=== PATIENT | male | born 1950 | race Caucasian/White ===

== ENCOUNTER 2025-04-18 22:14 | Inpatient (IN) | payer MEDICARE, OTHER, SELFPAY ==
[2025-04-18] VITALS (7 sets, daily range): BP systolic 100–144; BP diastolic 48–122; BMI 24.3
[2025-04-18 16:05] LABS: Hematocrit 42.5 % (39.0-52.0); Hemoglobin 13.8 g/dL (13.0-18.0); Mean Corp Hgb Conc. 32.5 g/dL (33.0-37.0); Mean Corpuscular Volume 91.0 fL (80.0-94.0); Nucleated Red Blood Cells % 0 % (-); Platelet Count 528 10^3/uL (130-400); Red Cell Dist. Width 14.2 % (11.5-14.5)
[2025-04-18 16:18] LABS: ALT (SGPT) 15 U/L (0-50); AST (SGOT) 15 U/L (17-59); Albumin 4.4 g/dl (3.5-5.0); Alkaline Phosphatase 90 U/L (38-126); Blood Urea Nitrogen 56 mg/dl (9-20); Calcium 10.0 mg/dl (8.4-10.2); Carbon Dioxide 20 mmol/L (22-30); Chloride 104 mmol/L (98-107); Glucose 238 mg/dl (70-99); Lipase 169 U/L (23-300); Potassium 4.7 mmol/L (3.5-5.1); Sodium 137 mmol/L (135-145); Total Protein 7.7 g/dl (6.3-8.2); eGFR 57.29
[2025-04-18 19:24] LABS: Troponin I 0.017 ng/ml
[2025-04-18] MEDS: DILAUDID 0.25 MG IV (19:54)
[2025-04-18] MEDS: NSS 1000 IV (19:57)
[2025-04-18 20:14] LABS: Urine Character Clear (Clear)
[2025-04-18 20:22] LABS: Urine Red Blood Cell 0-2 /HPF (0-2); Urine Squamous Cell 0-2 /LPF (Few); Urine White Cell 30-40 /HPF (0-5)
[2025-04-18 20:41] LABS: Troponin I 0.022 ng/ml
--- NOTE | 2025-04-18 21:18 | HPS.HSE ---
Family Physician
-
Family Physician: Donavan Fine
Chief Complaint
-
LBP, dehydration
History of Present Illness
HPI�
75M vague historian seen at ED:
- evalaution for Lower back pain with radiatios to thighs
- hip pain x 6 days
- nausea, diarrhea, fatigue, dehydration, confusion
- - Lightheaded and SoB
- failrly immobile since yesterday
Medical History
Past Medical History
Past Medical History: Reports HTN, Hypercholesterolemia, NIDDM and Psychiatric (depression)
Past Surgical History: Reports Other
Social History
Tobacco: Non-smoker
Alcohol: None
Family History
Family History: Not pertinent
Allergies / Home Medications
Allergies reflects when Allergies were last updated in 5to1.
Home Medications with original date entered in 5to1
Allergy/Medication List:
Allergies
Allergy/AdvReac Type Severity Reaction Status Date / Time
No Known Allergies Allergy Verified 04/18/25 15:39
Home Medications
aspirin 81 mg tablet,delayed release 81 mg PO DAILY 04/18/25
escitalopram oxalate 10 mg tablet (Lexapro) 10 mg PO DAILY 04/18/25
lisinopril 20 mg-hydrochlorothiazide 12.5 mg tablet 1 tab PO BID 04/18/25
metformin 500 mg tablet,extended release 24 hr 2,000 mg PO QPM 04/18/25
methylprednisolone 4 mg tablets in a dose pack (Medrol ([place])) 0 mg PO PER PKG DIR 04/18/25
naproxen sodium 220 mg tablet (Aleve) 440 mg PO BID 04/18/25
omega 7-wxz-vko-fish oil 60 mg-90 mg-500 mg capsule (Fish Oil) 1 cap PO DAILY 04/18/25
simvastatin 40 mg tablet (Zocor) 40 mg PO DAILY 04/18/25
therapeutic multivitamin 1 tab PO DAILY 04/18/25
Review of Systems
-
Constitutional: Reports No Symptoms
EENT: Reports No Symptoms
Respiratory: Reports No Symptoms
Cardiac: Reports No Symptoms
: Reports No Symptoms
Skin: Reports No Symptoms
Neurological: Reports No Symptoms
Endocrine: Reports No Symptoms
Hematologic/Lymphatic: Reports No Symptoms
Psych: Reports No Symptoms
Physical Exam
Vital Signs
Vital Signs
Temp Pulse Resp BP Pulse Ox
98.8 F 68 20 112/56 98
04/18/25 15:39 04/18/25 19:45 04/18/25 19:45 04/18/25 19:10 04/18/25 18:48
Physical Exam
General: Well Developed, Well Nourished and No Apparent Distress
HEENT: NormoCephalic, Moist mucous membranes and Atraumatic
Respiratory: Clear
Cardiac: S1/S2 and Regular Rhythm; No Murmur or Rub
GI: Soft, Non Tender, Non Distended and Normal Bowel Sounds; No Organomegaly
Rectal: Deferred by Provider
Musculoskeletal: No Clubbing, No Cyanosis and No Edema
Skin: No Rash
Neuro: Nonfocal/grossly intact and No Sensory Deficits (in [place] )
Laboratory Results
-
04/18/25 15:51
04/18/25 15:51
Laboratory Results
Lactic Acid 2.6 mmol/L (0.7-2.0) H 04/18/25 19:54
Total Bilirubin 0.9 mg/dl (0.2-1.3) 04/18/25 15:51
AST 15 U/L (17-59) L 04/18/25 15:51
ALT 15 U/L (0-50) 04/18/25 15:51
Alkaline Phosphatase 90 U/L (38-126) 04/18/25 15:51
Troponin I 0.022 ng/ml D 04/18/25 19:54
Lipase 169 U/L (23-300) 04/18/25 15:51
Data Reviewed
-
CT Scan: Report Reviewed by me
Lab Data: Labs Reviewed by me
Impression/Plan
-
Vital Signs
Temp Pulse Resp BP Pulse Ox
98.8 F 68 20 112/56 98
04/18/25 15:39 04/18/25 19:45 04/18/25 19:45 04/18/25 19:10 04/18/25 18:48
04/18/25 04/18/25 04/18/25
15:51 19:54 20:00
WBC 21.8 H
Hgb 13.8
Plt Count 528 H
BUN 56 H
Creatinine 1.3
eGFR 57.29
Lactic Acid 2.6 H
Creatine Kinase 24 L
Troponin I 0.017 0.022 D
Urine Nitrite (Reflex) Positive A
Urine WBC (Reflex) 30-40 A
Urine Bacteria (Reflex) Many A
EKG
NORMAL SINUS RHYTHM
LEFT AXIS DEVIATION
INCOMPLETE LEFT BUNDLE BLOCK
MINIMAL VOLTAGE CRITERIA FOR LVH, MAY BE NORMAL VARIANT ( Kai product )
INFERIOR INFARCT , AGE UNDETERMINED
ANTERIOR INFARCT , AGE UNDETERMINED
ST and T WAVE ABNORMALITY, CONSIDER LATERAL ISCHEMIA
ABNORMAL ECG
NO PREVIOUS ECGS AVAILABLE
Confirmed by MAURICIO TREVINO MD (ELLIE) ([id number]) on 04/18/2025 5:21:[address] Abd/Pel (IV only)-DH only
- Scattered small hepatic simple cysts as well as additional subcentimeter low-attenuation hepatic lesions too small to characterize.
- Borderline diffuse fatty liver.
- Symmetric renal excretion.
NO PRIOR hospitalist admission:
ASSESSMENT & PLAN
UTI
- IVF
- Empiric IV CFTZ
Renal insufficiency of unknown chronicity
- Avoid
Chronic loose BM
Noted blood stained per daughter and son- Hemorrhoids ?
report black stools
Hgb 13.8 and hemodynamically stable
- HoB stool
- trend Hgb
LBP with radiation to thighs ? B/L Lumbago
acute ambulatory dysfunction
- cont Medrol dose pack
- PT/OT
- PRN Pain ladder control according to severity : Tyelnol PRN , Percocet PRN, IV Dilaudid PRN - hold for AMS
- To consider MRI of Lx spine if no progress
Essential HTN
- SPECTRAL SCIENTIST Lisinopril/HCTZ
DMT2
- Hold Metformin
- add ISS low
HLD
- on SPECTRAL SCIENTIST ASA & Simvastatin
Depression
- escitalopram
DVT Px: SCD
Full code
IP MS
[2025-04-18] MEDS: ROCEPHIN 2000 MG IV (21:25)
[2025-04-18] MEDS: DILAUDID 0.5 MG IV (21:26)
[2025-04-18 22:24] LABS: COVID-19 Antigen Negative (Negative)
--- NOTE | 2025-04-18 23:01 | ED.GENMED ---
History of Present Illness
General
Chief Complaint: Musculo-Skeletal Complaint
Source: patient and family
Exam Limitations: clinical condition
Time Seen by Provider: 04/18/25 19:03
Nursing documentation reviewed up to this point in time: agreed with
History of Present Illness
History of Present Illness:
see MDM
Phy Exam
Physical Exam
Physical Exam:
GENERAL: Alert , in no apparent distress
EYE: pupils equal and reactive
NECK: Supple
ENT: o/p clr, mmm. hoarse voice, dry mouth and lips
CARDIAC: Regular rate and rhythm .
LUNGS: Clear breath sounds bilaterally, no acute respiratory distress, no wheezes/rales/rhonchi
ABDOMEN: Soft, mild to mod R flank tendrerness; no r/g, no cvat, normal bowel sounds
NEUROLOGICAL: Alert and oriented, no focal neuro deficits
SKIN: Warm and dry, skin intact.
MUSCULOSKELETAL: normal inspection back and R hip
mild R paraspinal muscle tendenrss
no rash
no bony hiip tenderness
painful limited hip rom, but able to flex hip 30 degrees and rotate, do not suspect septic joint
normal leg perfusion
no testicular swelling
PSYCH: Normal and appropriate interaction.
Course
Orders/Labs/Results
Orders:
Orders
04/18/25 15:44
Electrocardiogram (*1) Urgent
Reason for Study: Abdominal Pain
EKG- Treatment ONCE
04/18/25 15:51
Complete Blood Count/With Diff Urgent
Comprehensive Metabolic Panel Urgent
Lipase Urgent
Troponin I Urgent
Comment: ADD ON ON SERUM
04/18/25 19:00
Add On- LAB Urgent
Tests Added?: troponin
04/18/25 19:27
CT Abd/Pel (IV only)-[facility] only Urgent
Comment:
Reason For Exam: R back/groin pain, diarrhea, weak
0.9% Sodium Chloride 1000 ml [Nss] 1,000 ml IV BOLUS
HYDROmorphone [Dilaudid] 0.25 mg IV NOW STA
04/18/25 19:54
CPK [Creatine Phosphokinase] Urgent
Lactic Acid Urgent
Troponin I Urgent
04/18/25 20:00
Urinalysis Reflex To Culture Urgent
Date Specimen was Collected: 04/18/25
Time Specimen was Collected: 20:00
Urine Microscopic Reflex Cult Urgent
Urine Culture Urgent
NERY Source: U
Specimen Description:
Date Specimen was Collected: 04/18/25
Time Specimen was Collected: 20:00
04/18/25 20:50
CefTRIAXone [Rocephin] 2,000 mg IV NOW STA
04/18/25 21:05
HYDROmorphone [Dilaudid] 0.5 mg IV NOW STA
Hip, Right 2-3 Views [CR Hip - RT w/wo Pel 2-3 Vw*] Urgent
Comment:
Reason For Exam: R hip pain
Include a pelvis x-ray?: Yes
04/18/25 21:08
Sterile Water [Sterile Water For Injection] 10 ml .ROUTE .STK-MED ONE
04/18/25 21:09
Sterile Water [Sterile Water For Injection] 20 ml .ROUTE .STK-MED
04/18/25 21:36
Admit/Transfer Patient As Directed
Co-Sign Provider:
Level of Care: Inpatient admission
Assign to:: Medical/Surgical
Physician / Group: [email or web address]
Transfer to: Medical/Surgical
Diagnosis: UTI, LBP, Renal insufficiency
Reason for Hospitalization: UTI, LBP, Renal insufficiency
Expected length of stay greater than two midnights?: Yes
ELOS- Estimated Length of Stay in days: 3
I certify the patient meets the requirements for IP care: Yes
04/18/25 21:39
Code Status As Directed
Resuscitation Status: Full Code
04/18/25 21:59
COVID-19 Antigen Urgent
Source: Nasal Swab
Blood Culture Q30M
NERY Source: Blood/Venous
Specimen Description:
Blood Culture Q30M
NERY Source: Blood/Venous
Specimen Description:
Abnormal Lab Results
04/18/25 04/18/25 04/18/25
15:51 19:54 20:00
WBC 21.8 H 10^3/uL
(4.8-10.8)
RBC 4.67 L 10^6/uL
(4.70-6.10)
MCHC 32.5 L g/dL
(33.0-37.0)
Plt Count 528 H 10^3/uL
(130-400)
Abs Immat Gran (auto) 0.4 H 10^3/uL
(0-0.05)
Absolute Neuts (auto) 16.6 H 10^3/uL
(1.4-6.5)
Absolute Monos (auto) 1.7 H 10^3/uL
(0.1-0.6)
Immature Gran % 1.6 H %
(0-0.5)
Neutrophils % 76.1 H %
(42.2-75.2)
Lymphocytes % 13.9 L %
(20.5-51.1)
Carbon Dioxide 20 L mmol/L
(22-30)
BUN 56 H mg/dl
(9-20)
Glucose 238 H mg/dl
(70-99)
Lactic Acid 2.6 H mmol/L
(0.7-2.0)
AST 15 L U/L
(17-59)
Creatine Kinase 24 L U/L
(55-170)
Urine Nitrite (Reflex) Positive A
(Negative)
Leukocyte Esterase Rfl 1+ A
(Negative)
Urine WBC (Reflex) 30-40 A /HPF
(0-5)
Urine Bacteria (Reflex) Many A
(Negative)
Urine Glucose 4+ A
(Negative)
Urine Albumin (Reflex) 1+ A
(Neg - Trace)
04/18/25 15:51
04/18/25 15:51
Vital Signs
Initial and Last Documented VS:
Initial Vital Signs
Temp Pulse Resp BP Pulse Ox
37.1 C 84 18 114/48 96
04/18/25 15:39 04/18/25 15:39 04/18/25 15:39 04/18/25 15:39 04/18/25 15:39
Last Documented Vital Signs
Temp Pulse Resp BP Pulse Ox
37.1 C 60 15 144/122 98
04/18/25 15:39 04/18/25 22:15 04/18/25 22:15 04/18/25 21:00 04/18/25 23:01
MDM/Problems Addressed
MDM/Problems Addressed:
Note:
CHIEF COMPLAINT(S)
Right hip pain and bowel incontinence.
HISTORY OF PRESENT ILLNESS
Patient says he presents for right hip pain, worse with movement and walking without initiating trauma over the last 6 days. Patient says that he got a right knee Kwan's cyst drained and a cortisone shot from orthopedics. And after that a day or
2 later he started having right-sided back pain. Is not totally unusual for him to have back pain but this is much more significant. He started feeling nauseated, had some diarrhea to where he could not get to the bathroom in time because his hip
was painful so he became incontinent. This is unusual for him although the family says he has had issues with his bowels before this seems worse. Then over the last 3 or 4 days he seemed to be little confused according to the family. He says that
he has not really gotten out of bed and was pretty dehydrated not eating for the past 2 days because the pain was bad.. The patient describes experiencing balance issues, feeling lightheaded before a previous fall, but does not attribute this to leg
weakness, rather to stability problems. The patient has a prior history of falls, noted as lacking in frequency but significant in impact. Despite saying that he felt short of breath in triage she denied feeling short of breath to me
He denies any fever, cold symptoms, shortness of breath, chest pain, vomiting, dysuria
MEDICAL HISTORY
The patient has a history of diabetes. He also reported having previous corticosteroid treatment and is currently on a prednisone taper but did not take it today. The patient takes aspirin regularly.
SOCIAL DETERMINANTS AFFECTING HEALTH
The patient reports rarely consuming alcohol.
MEDICATIONS
- Prednisone (patient did not take todays dose)
- Aspirin (dose not specified)
REVIEW OF SYSTEMS
- Gastrointestinal: Reports bowel incontinence, lack of food intake.
- Musculoskeletal: Right hip pain, difficulty walking, and reduced mobility.
- Respiratory: Mild difficulty breathing, hoarseness noted since Friday.
- General: Dehydration, weakness, light-headedness before prior fall.
PHYSICAL EXAM
See above
- Nursing notes reviewed and vital signs reviewed.
PLAN
The plan includes performing a computed tomography scan to investigate potential internal causes related to abdominal, hip, and back pain. A COVID-19 test is warranted due to the respiratory symptoms and general malaise, alongside the provision of
intravenous fluids for dehydration. Consideration for imaging of the patients hip, back, and abdominal areas is outlined. Control and management of pain will be addressed with additional pain relief.
DIFFERENTIAL DIAGNOSIS
The Differential Diagnosis includes, in no particular order and is not limited to:
1. Sciatica
2. Hip joint inflammation
3. Bowel obstruction or infection
4. Urinary tract infection
5. Lumbar disc disease
6. Sciatic nerve impingement
7. Viral infection leading to joint involvement
8. Dehydration secondary to reduced intake
9. New onset diabetes-related complications
10. Musculoskeletal sprain or strain
CARE-UPDATE
04/18/25 - 21:05
Patient presented with atraumatic right hip and back pain, no signs of cauda equina, some discomfort with ranging the hip passively and right CVA and right flank tenderness on exam. Patient's white blood cell count is moderately elevated 21,000
with a left shift, likely too high to attribute to steroid use. His BUN is also significantly elevated, and the patient P appear dehydrated. He is receiving IV fluids and he does look a little bit perkier patient's lactate is elevated
And his urine is infected.
The CT scan showed no evidence of diverticulitis or colitis, nor did it clarify the source of the patients pain, suggesting it may not be related to gastrointestinal causes. The patient may simultaneously be experiencing musculoskeletal pain due to
sciatica or immobility, alongside the infection. Prostatitis was considered but deemed less likely, given the patients recent satisfactory PSA levels and absence of significant rectal pressure.
Immediate hospital admission for IV antibiotics is necessary to address the bladder/kidney infection and prevent progression to sepsis.
*Pulse Oximetry
SaO2: 98
Oxygen Mode of Delivery: Room air
Patient hypoxic: no (96)
*Critical Care Note
Total Time (30-74mins, 75-104mins- exclusive of procedures): Not Applicable
ED Attending Note
-
Portions of this chart may have been created with voice recognition software.� Occasional wrong word or��sound alike� substitutions may have occurred due to the inherent limitations of voice recognition software.
Discharge Plan
Departure
Patient Disposition: Admit
Date of Disposition: 04/18/25
Time of Disposition: 20:50
Admit to: Med/Surg
Presentation/result/management discussed w/ accepting MD/DO: Hospitalist
Condition: Fair
Covid-19: Not Applicable
Discharge Problem:
Pyelonephritis, Hip pain, right, Dehydration
Interventions
Interventions:
*Risk Screen - Suicide Last Done: 04/18/25 15:39
*General Assessment Last Done: 04/18/25 19:42
*Neglect/Abuse Screening Last Done: 04/18/25 19:42
*ED- Fall Risk Assessment Last Done: 04/18/25 19:42
*ED COVID-19 Vaccine History Last Done: 04/18/25 19:42
ED-Musculoskeletal Assessment Last Done: 04/18/25 19:44
[2025-04-19] MEDS: DILAUDID 0.5 MG IV ×2 (01:24→17:06)
[2025-04-19] MEDS: NSS 1000 IV ×2 (01:25→13:48)
[2025-04-19 01:36] VITALS: BP 161/66; BMI 24.2
[2025-04-19 02:03] LABS: Glucose - Point of Care 310 mg/dl (70-99)
[2025-04-19 05:56] VITALS: BMI 24.5
[2025-04-19 06:05] LABS: ALT (SGPT) 13 U/L (0-50); AST (SGOT) 12 U/L (17-59); Albumin 3.5 g/dl (3.5-5.0); Alkaline Phosphatase 73 U/L (38-126); Blood Urea Nitrogen 58 mg/dl (9-20); Calcium 8.9 mg/dl (8.4-10.2); Carbon Dioxide 23 mmol/L (22-30); Chloride 103 mmol/L (98-107); Estimated Creatinine Clearance 54 ml/min; Glucose 271 mg/dl (70-99); Potassium 4.2 mmol/L (3.5-5.1); Sodium 136 mmol/L (135-145); Total Protein 6.3 g/dl (6.3-8.2); eGFR 57.29
[2025-04-19 06:27] LABS: Hematocrit 35.7 % (39.0-52.0); Hemoglobin 11.8 g/dL (13.0-18.0); Mean Corp Hgb Conc. 33.1 g/dL (33.0-37.0); Mean Corpuscular Volume 91.5 fL (80.0-94.0); Platelet Count 372 10^3/uL (130-400); Red Cell Dist. Width 14.3 % (11.5-14.5)
--- NOTE | 2025-04-19 06:34 | PTCARENOTE ---
Patient arrived on unit @0035 via stretcher from ED, ambulate with assist x1 with RW to bed. Patient AAOx3, c/o 9/10 pain to right hip, prn dilaudid administered as ordered. Skin assessment completed, oriented to unit, call lynn within reach.
[2025-04-19 07:34] VITALS: BP 144/60
--- NOTE | 2025-04-19 07:41 | W.PN.HOSP.TC ---
Today's Communication/Plan
-
PT/OT consult, pending MRI
Assessment / Plan
Assessment / Plan
Impression:
Patient 75 years old with history of diabetes, hypertension, hyperlipidemia, depression who came to the ER with back pain and right hip pain, also abdominal pain, CT abdomen was done in the Er shows:
Scattered small hepatic simple cysts as well as additional subcentimeter low-attenuation hepatic lesions too small to characterize. Borderline diffuse fatty liver. Symmetric renal excretion. Limited evaluation of intestinal tract without oral
contrast, without intestinal obstruction or free air. Prior appendectomy, patient also noted to have UTI and started on Rocephin.
MRI lumbar spine ordered.
Assessment/plan:
Sepsis secondary to UTI.
Patient meets sepsis criteria on admission with leukocytosis and tachypnea.
Source of infection UTI.
Continue Rocephin
Pending urine
Mild renal sufficiency.
Continue to monitor creatinine.
Avoid nephrotoxic
Diarrhea alternate with constipation
Associated with abdominal pain
Back pain with right hip pain.
Continue Medrol pack.
MRI lumbar spine
History�of�diabetes�mellitus
Continue�home�medication
Insulin�sliding�scale
Diabetic�diet
Hemoglobin A1c 7.9
History�of�hypertension
Continue home meds
History of hyperlipidemia
Continue�statin
History of depression
Continue Lexapro
�
CODE STATUS:�Full�code
DVT�prophylaxis:�Lovenox
Diet:�DM�diet
Disposition: PT/OT consult, pending MRI
Total time spent on today's encounter was 65 minutes which included time spent in counseling the patient/family regarding diagnosis and treatment plan as listed above, goals of care, and symptom management. Case was discussed with nursing staff,
specialists, and care coordinators/case management. All labs and imaging personally reviewed by me. Remainder the time spent in detailed review of previous records, lab data, imaging, and other medical provider documentation.
Anticipated Discharge: 24 - 48 hours
Subjective/Interval History
-
Date of Service: April 19, 2025
Patient complaining of back pain or right hip pain, MRI pending.
Objective Data
-
Labs:
Laboratory Results
04/19/25
05:15
WBC 20.0 H
Hgb 11.8 L
Hct 35.7 L
Plt Count 372 D
Sodium 136
Potassium 4.2
Chloride 103
Carbon Dioxide 23
BUN 58 H
Creatinine 1.3
Glucose 271 H
Calcium 8.9
Total Bilirubin 0.5
AST 12 L
ALT 13
Alkaline Phosphatase 73
Vital Signs:
Vital Signs
Temp Pulse Resp BP Pulse Ox
98.6 F 59 16 144/60 98
04/19/25 07:34 04/19/25 07:34 04/19/25 07:34 04/19/25 07:34 04/19/25 07:34
I&O
04/18/25 04/19/25 04/20/25
06:59 06:59 06:59
Intake Total 240 / 240 434 / 434
Output Total 140 / 140
Balance 100 / 100 434 / 434
Physical Exam
-
General: Well Developed
HEENT: Normocephalic, Atraumatic, Moist Mucous Membranes, No Ptosis, PERRLA and Nose Appears Normal
Respiratory: Clear to Auscultation and Non Labored Respirations
Cardiac: Regular Rhythm and S1/S2
Breast: Deferred by me
GI: Soft, Nontender, Nondistended and Normal Bowel Sounds
Genito-urinary: No Costovertebral Tender
Musculoskeletal: No Clubbing, No Cyanosis and No Edema
Skin: Warm
Neuro: Awake, Alert, Oriented, AO x 3 and No Motor Deficits
Psych: Calm and Confused
Data Reviewed
-
Diagnostic Radiology: Image personally visualized and interpreted and Report Reviewed by me
CT Scan: Image personally visualized and interpreted and Report Reviewed by me
Ultrasound: Image personally visualized and interpreted and Report Reviewed by me
MRI: Image personally visualized and interpreted and Report Reviewed by me
Medical Tests (Nuc Med, Echo etc): Image personally visualized and interpreted and Report Reviewed by me
Labs: Labs Reviewed by me
Old Records: Reviewed
[2025-04-19] MEDS: LIPITOR 20 MG PO (07:43)
[2025-04-19] MEDS: LEXAPRO 10 MG PO (07:43)
[2025-04-19] MEDS: ASPIR LOW (ENTERIC COATED) 81 MG PO (07:43)
[2025-04-19] MEDS: ZESTRIL 20 MG PO ×2 (07:43→20:14)
[2025-04-19] MEDS: NOVOLOG FLEXPEN-LOW RESISTANCE 3 UNITS SC ×2 (07:44→17:07)
[2025-04-19 07:45] LABS: Glucose - Point of Care 271 mg/dl (70-99)
[2025-04-19 09:00] LABS: Glycohemoglobin (HgbA1c) 7.9 % (4.0-5.6)
[2025-04-19 09:36] VITALS: BP 153/64; PULSE 60
[2025-04-19] MEDS: PERCOCET 5/325 1 TABLET PO ×2 (09:36→14:24)
--- NOTE | 2025-04-19 10:31 | CM ---
Patient seen at bedside
evalaution for Lower back pain with radiatios to thighs
MRI ordered
IA completed-spoke with daughter Snow
daughter & sons live close to patient and are supportive
Recently moved to [place], lives alone 1 story home, 0 ALYSA
PLOF: Independent, does not use assistive device
denies DME
Denies VN/has had outpatient PT/OT last year for shoulder
PT to eval
PCP: Jhonathan Fine
PHARMACY: [facility]
PLAN: TBD, await PT eval, CM to follow for needs
[2025-04-19 11:37] LABS: Glucose - Point of Care 234 mg/dl (70-99)
[2025-04-19 11:53] VITALS: BMI 24.5
[2025-04-19] MEDS: NOVOLOG FLEXPEN-LOW RESISTANCE 2 UNITS SC (13:30)
[2025-04-19 15:25] VITALS: BP 121/51
[2025-04-19 17:02] LABS: Glucose - Point of Care 281 mg/dl (70-99)
--- NOTE | 2025-04-19 18:32 | W.PN.UPDATE ---
Update Note
Progress Note Update
75 yo M with left hallux cellulitis, possible OM
- continue abx
- will obtain mri to eval for L hallux OM
- no current plan for OR
[2025-04-19] MEDS: STERILE WATER FOR INJECTION 10 ML IV (21:13)
[2025-04-19] MEDS: ROCEPHIN 1000 MG IV (21:13)
[2025-04-19 21:23] LABS: Glucose - Point of Care 211 mg/dl (70-99)
[2025-04-19 23:03] VITALS: BP 130/57
[2025-04-20] MEDS: NSS 1000 IV (03:19)
[2025-04-20] MEDS: PERCOCET 5/325 1 TABLET PO (03:24)
--- NOTE | 2025-04-20 05:12 | DOWNTIME ---
There was a [employer]ist Downtime on 04/20/2025 from 0100 to 04/20/2025 at 0235. Downtime documentation of patient's care, including medication administrations, has been reconciled in the electronic record per guidelines. Refer to the
patient's paper chart under the miscellaneous tab to see printed paper medication records and downtime forms.
[2025-04-20 06:00] VITALS: BMI 24.6
[2025-04-20 06:15] LABS: Hematocrit 34.0 % (39.0-52.0); Hemoglobin 11.0 g/dL (13.0-18.0); Mean Corp Hgb Conc. 32.4 g/dL (33.0-37.0); Mean Corpuscular Volume 92.1 fL (80.0-94.0); Platelet Count 327 10^3/uL (130-400); Red Cell Dist. Width 14.3 % (11.5-14.5)
[2025-04-20 06:45] LABS: Blood Urea Nitrogen 34 mg/dl (9-20); Calcium 8.4 mg/dl (8.4-10.2); Carbon Dioxide 22 mmol/L (22-30); Chloride 108 mmol/L (98-107); Estimated Creatinine Clearance 70 ml/min; Glucose 237 mg/dl (70-99); Potassium 4.3 mmol/L (3.5-5.1); Sodium 137 mmol/L (135-145); eGFR > 60.00
[2025-04-20 07:00] VITALS: BP 127/61
[2025-04-20] MEDS: ASPIR LOW (ENTERIC COATED) 81 MG PO (07:41)
[2025-04-20] MEDS: LEXAPRO 10 MG PO (07:41)
[2025-04-20] MEDS: ZESTRIL 20 MG PO ×2 (07:41→20:28)
[2025-04-20] MEDS: LIPITOR 20 MG PO (07:41)
[2025-04-20 07:53] LABS: Glucose - Point of Care 232 mg/dl (70-99)
[2025-04-20] MEDS: NOVOLOG FLEXPEN-LOW RESISTANCE 2 UNITS SC ×2 (09:19→12:57)
--- NOTE | 2025-04-20 11:00 | W.PN.HOSP.TC ---
Today's Communication/Plan
-
Continue to Antibiotic.
Infectious disease Cx
MRI left big toe and lumbar spine pending
Assessment / Plan
Assessment / Plan
Impression:
Patient 75 years old with history of diabetes, hypertension, hyperlipidemia, depression who came to the ER with back pain and right hip pain, also abdominal pain, CT abdomen was done in the Er shows:
Scattered small hepatic simple cysts as well as additional subcentimeter low-attenuation hepatic lesions too small to characterize. Borderline diffuse fatty liver. Symmetric renal excretion. Limited evaluation of intestinal tract without oral
contrast, without intestinal obstruction or free air. Prior appendectomy, patient also noted to have UTI and started on Rocephin.
MRI lumbar spine ordered.
Noted to have left big toe infection, podiatry and infectious is consulted
Assessment/plan:
Sepsis secondary to UTI/left big toe osteomyelitis
Patient meets sepsis criteria on admission with leukocytosis and tachypnea.
Source of infection UTI/osteomyelitis.
Continue Rocephin-infectious is consulted
Pending urine
Acute left distal phalanx osteomyelitis.
Patient with infected, enlarged, red and swollen left big toe
Podiatry consulted.
X-ray shows:
Lucency suggesting cortical bony destructive process involving at least the distal aspect of the distal phalanx of the left great toe,a suspicious for infection/osteomyelitis.
Infectious is consult.
Will switch antibiotic to broad coverage
Mild renal sufficiency.
Resolved
Diarrhea alternate with constipation
Associated with abdominal pain
Back pain with right hip pain.
Continue Medrol pack.
MRI lumbar spine pending
History�of�diabetes�mellitus
Continue�home�medication
Insulin�sliding�scale
Diabetic�diet
Hemoglobin A1c 7.9
History�of�hypertension
Continue home meds
History of hyperlipidemia
Continue�statin
History of depression
Continue Lexapro
�
CODE STATUS:�Full�code
DVT�prophylaxis:�Lovenox
Diet:�DM�diet
Disposition: Continue to Antibiotic.
Infectious disease Cx
MRI left big toe and lumbar spine pending
Total time spent on today's encounter was 65 minutes which included time spent in counseling the patient/family regarding diagnosis and treatment plan as listed above, goals of care, and symptom management. Case was discussed with nursing staff,
specialists, and care coordinators/case management. All labs and imaging personally reviewed by me. Remainder the time spent in detailed review of previous records, lab data, imaging, and other medical provider documentation.
Anticipated Discharge: > 48 hours
Subjective/Interval History
-
Date of Service: April 20, 2025
Seen and examined at bedside, overall improving
Objective Data
-
Labs:
Laboratory Results
04/20/25
05:47
WBC 21.6 H
Hgb 11.0 L
Hct 34.0 L
Plt Count 327
Sodium 137
Potassium 4.3
Chloride 108 H
Carbon Dioxide 22
BUN 34 H
Creatinine 1.0
Glucose 237 H
Calcium 8.4
Vital Signs:
Vital Signs
Temp Pulse Resp BP Pulse Ox
98.3 F 61 18 127/61 96
04/20/25 07:00 04/20/25 07:00 04/20/25 07:00 04/20/25 07:00 04/20/25 07:45
I&O
04/19/25 04/20/25 04/21/25
06:59 06:59 06:59
Intake Total 240 / 240 854 / 854
Output Total 140 / 140 1650 / 1650
Balance 100 / 100 -796 / -796
Physical Exam
-
General: Well Developed
HEENT: Normocephalic, Atraumatic, Moist Mucous Membranes, No Ptosis, PERRLA and Nose Appears Normal
Respiratory: Clear to Auscultation and Non Labored Respirations
Cardiac: Regular Rhythm and S1/S2
Breast: Deferred by me
GI: Soft, Nontender, Nondistended and Normal Bowel Sounds
Genito-urinary: No Costovertebral Tender
Musculoskeletal: No Clubbing and Other (Redness, swelling left big toe)
Skin: Warm
Neuro: Awake, Alert, Oriented, AO x 3 and No Motor Deficits
Psych: Calm and Confused
--- NOTE | 2025-04-20 11:50 | CM ---
Patient seen at bedside
Continue Antibiotic
MRI left big toe and lumbar spine pending
Await PT eval
PLAN: tbd, await PT eval, CM will follow for needs
--- NOTE | 2025-04-20 12:04 | CON.ID ---
Consultation
-
Date/Time Consultation Requested: April 20, 2025 0811
Date/Time Consultation Performed: April 20, 2025 1205
Requesting Provider: Dr. Salazar Swan
Performing Provider: Dr. Jodee Tam
Reason for Consultation: Toe infection
Chief Complaint / Past History
Chief Complaint
Right-sided back pain
History of Present Illness
History obtained from the patient as well as from his daughter at bedside. He is a 75-year-old male with diabetes mellitus, neuropathy, who presented to the ER late April 18 due to severe right sided back pain. Patient had been having issues with
right knee discomfort due to Bakers cyst requiring drainage of the cyst twice. 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 He was placed on steroid without improvement. Pain is
constant. No urine symptoms of dysuria, urgency, or frequency. Had 1 episode of diarrhea at home now resolved. No fevers. No cough or shortness of breath. No headaches. No recent falls. Daughter is concerned about patient may have dementia;
he has progressive decline in cognitive function. In the ER afebrile, white count 21.8. Urine analysis positive nitrite, positive leukocyte esterase, 30-40 white blood cells, urine culture staphylococcus aureus. Blood cultures x 2 negative to
date. Patient noted to have significant swelling of the left great toe with erythema. Patient unsure when the toe started swelling up. He denies history of gout. No pain due to neuropathy. Foot x-ray shows lucency concerning for osteomyelitis.
Past History
Additional Past Medical History:
Diabetes mellitus
Neuropathy
Hypertension
Dyslipidemia
Depression
Allergy History:
No Known Allergies Allergy (Verified 04/18/25 15:39)
Medications Reviewed: Yes
Current Antibiotics:
ceftriaxone d2
Social History
Tobacco: Non-Smoker
Alcohol: None
Drug: None
Personal:
Living: With Family
Family History
Family History: Not Pertinent
Review of Systems
Review of Systems
General: Chills; Negative Fever or Change in Appetite
HEENT: Negative Headache or Pharyngitis
Cardiovascular: Negative Chest Pain or Dyspnea
Respiratory: Negative Dyspnea or Cough
Gasteroenterology: Negative Nausea or Vomiting
Genital / Urological: Negative Dysuria, Hematuria or Flank Pain
Endocrine: Weakness
Skin / Hair / Nails: Negative Rash
All systems: All other systems were reviewed and were negative
Vital Signs
Temp Pulse Resp BP Pulse Ox
98.3 F 61 18 127/61 96
04/20/25 07:00 04/20/25 07:00 04/20/25 07:00 04/20/25 07:00 04/20/25 07:45
Physical Exam
Physical Exam
Constitutional: No Acute Distress and Comfortable
Head: Other (No frontal or max or sinus tenderness)
Eyes: No Conjunctival Hemorrhage and Sclera Anicteric
Cardiovascular: Regular Rate and S1/S2
Pulmonary: Clear
Gastrointestinal: Soft, Non Tender, Non Distended and Normal Bowel Sounds
Genito-Urinary: Negative CVA Tenderness
Extremities: Edema (Left great toe with significant edema, erythema, no open wounds.) and Pulses (Strong pedal pulses bilaterally)
Musculoskeletal: Spinal Tenderness (Right lower lumbar paraspinal)
Neurological: AO x 3
Lab / Diagnostic Study Results
04/20/25 05:47
04/20/25 05:47
Abs Immat Gran (auto) 0.4 10^3/uL (0-0.05) H 04/18/25 15:51
Absolute Neuts (auto) 16.6 10^3/uL (1.4-6.5) H 04/18/25 15:51
Absolute Lymphs (auto) 3.0 10^3/uL (1.2-3.4) 04/18/25 15:51
Absolute Monos (auto) 1.7 10^3/uL (0.1-0.6) H 04/18/25 15:51
Absolute Basos (auto) 0.1 10^3/uL (0-0.2) 04/18/25 15:51
Immature Gran % 1.6 % (0-0.5) H 04/18/25 15:51
Neutrophils % 76.1 % (42.2-75.2) H 04/18/25 15:51
Lymphocytes % 13.9 % (20.5-51.1) L 04/18/25 15:51
Monocytes % 7.8 % (1.7-9.3) 04/18/25 15:51
Eosinophils % 0.3 % (0-6) 04/18/25 15:51
Basophils % 0.3 % (0-2) 04/18/25 15:51
Lactic Acid 2.6 mmol/L (0.7-2.0) H 04/18/25 19:54
Ur Squamous Epith Cells 0-2 /LPF (Few) 04/18/25 20:00
Microbiology Results
Micro:
04/18/25 20:00 Urine Culture - Preliminary
Urine Staphylococcus aureus
04/18/25 21:59 Blood Culture - Preliminary
Blood/Venous No Growth in 24 hours- Final report to follow
04/18/25 21:59 Blood Culture - Preliminary
Blood/Venous No Growth in 24 hours- Final report to follow
04/20/25 LLE MRI wo contrast: First distal digit cellulitis with osteomyelitis. Probable superimposed pathologic fracture. Interphalangeal joint effusion, suspicious for septic arthritis, as well as fluid distention along the first extensor tendon
sheath, raising the possibility of infectious tenosynovitis. Low level bone marrow edema is noted within the head of the first proximal phalanx, which may be reactive in nature. Mild/early osteomyelitis cannot be entirely excluded.
04/20/25 Lumbar MRI: No evidence to suggest discitis or osteomyelitis. No epidural collection to suggest epidural abscess. Intramuscular and fascial edema associated with the right psoas muscle and posterior right paraspinal musculature. Most likely
muscle strain/partial tear. See full dictated report.
04/19/25 Foot XRAY: Lucency suggesting cortical bony destructive process involving at least the distal aspect of the distal phalanx of the left great toe,a suspicious for infection/osteomyelitis.
Assessment / Plan
# Left hallux cellulitis/edema
# Leukocytosis
# Hx DM with neuropathy
- MRI shows distal osteo, septic arthritis, pathological fracture.
- However, pt without wounds and therefore not contiguous spread. Bcx neg to date, not hematogenous seeding.
- Check uric acid to make sure not gout.
- Podiatry following.
- Replace ceftriaxone with cefazolin.
- Follow WBC.
# S. aureus bacteruria
- Pt asymptomatic
- Bcx's x 2 neg to date.
- Will treat the S. aureus with cefazolin for now.
# Acute right lower lumbar pain
- MRI: no discitis/osteo/abscess.
+ right psoas muscle and paraspinal muscke strain vs partial tear
[2025-04-20 12:13] LABS: Glucose - Point of Care 236 mg/dl (70-99)
[2025-04-20] MEDS: SENOKOT-S 1 TABLET PO (12:22)
[2025-04-20] MEDS: DILAUDID 0.5 MG IV ×3 (12:24→20:50)
[2025-04-20] MEDS: ANCEF 10 IV ×2 (14:09→22:29)
[2025-04-20 15:00] VITALS: BP 147/58
--- NOTE | 2025-04-20 15:57 | W.PN.UPDATE ---
Update Note
Progress Note Update
75 yo M with left hallux OM and cellulitis
- Plan for left hallux amputation tomorrow, npo at midnight
-- Discussed with patient and daughter at bedside
- continue abx
- [facility] LLE
[2025-04-20 15:59] LABS: Uric Acid 6.8 mg/dl (3.5-8.5)
[2025-04-20 16:36] LABS: Glucose - Point of Care 172 mg/dl (70-99)
[2025-04-20] MEDS: NOVOLOG FLEXPEN-LOW RESISTANCE 1 UNITS SC (16:40)
[2025-04-20] MEDS: MELATONIN 5 MG PO (20:32)
[2025-04-20 22:02] LABS: Glucose - Point of Care 221 mg/dl (70-99)
[2025-04-20 23:00] VITALS: BP 120/62
[2025-04-21] VITALS (12 sets, daily range): BP systolic 120–141; BP diastolic 52–67; BMI 25.2
[2025-04-21 05:48] LABS: Glucose - Point of Care 216 mg/dl (70-99)
[2025-04-21] MEDS: DILAUDID 0.5 MG IV ×2 (06:03→13:49)
[2025-04-21] MEDS: ANCEF 10 IV ×3 (06:04→21:52)
[2025-04-21] MEDS: NOVOLOG FLEXPEN-LOW RESISTANCE 2 UNITS SC (06:18)
--- NOTE | 2025-04-21 07:13 | CON.SURG ---
Surgical Consultation
-
CONSULTING PHYSICIAN: Frankie Mejia DPM
DATE/TIME OF REQUEST: 04/19/2025
DATE/TIME OF CONSULTATION: 04/19/2025
SUBJECTIVE/REASON FOR CONSULT: Patient is a 75-year-old male with
history of diabetes, hypertension, hyperlipidemia, depression who
initially presented to the ER with back pain and right hip pain. A
CT abdomen was performed in the ER.
Patient has had left big toe swelling for approximately one year.
He denies seeing any previous foot and ankle docs. He denies having
any previous wounds. This time, he denies any other
complaints or concerns. Denies smoking and is ambulatory at
baseline.
OBJECTIVE/PHYSICAL EXAM: EXTREMITIES: Left lower extremity pulses
are faintly palpable with no pedal hair growth. Soft tissue
gradient is warm to cool with localized increase in warmth to the
left hallux. Sensation is diminished. Gross motor function is
intact. He has hammertoe contractures to all toes, 1-5 bilateral,
with edema localized only to the left hallux and rubra that does
not dissipate on elevation. There is no open wound. Now, his
helical nail is adhered.
RADIOGRAPHIC EVALUATION:
Left foot x-ray, agree with radiologist report. Lucency suggesting
cortical bony destructive process involving at least the distal
aspect of the distal phalanx of the great toe with a suspicion for
osteomyelitis.
Left foot MRI, agree with radiologist report: First digit cellulitis with osteomyelitis. Probable superimposed pathologic fracture. Interphalangeal joint effusion, suspicious for septic arthritis, as well as fluid distention along the first extensor
tendon sheath, raising the possibility of infectious tenosynovitis.
Low level bone marrow edema is noted within the head of the first proximal phalanx, which may be reactive in nature. Mild/early osteomyelitis cannot be entirely excluded.
ASSESSMENT:
The patient is a 75-year-old male who is admitted to the hospital
for sepsis secondary to urinary tract infection. Additionally, he
has left hallux cellulitis with possible underlying osteomyelitis.
PLAN: MRI and clinical findings consistent with osteomyelitis of the right hallux.
Discussed conservative treatment options with patient including antibiotics,
local wound care, and offloading. Given presentation, ultimately recommended
and decided upon left hallux amputation, planned on 04/21/2025. Continue
antibiotics and offloading in the meantime.
[2025-04-21 07:44] LABS: Hematocrit 33.3 % (39.0-52.0); Hemoglobin 11.0 g/dL (13.0-18.0); Mean Corp Hgb Conc. 33.0 g/dL (33.0-37.0); Mean Corpuscular Volume 90.7 fL (80.0-94.0); Platelet Count 324 10^3/uL (130-400); Red Cell Dist. Width 14.0 % (11.5-14.5)
[2025-04-21 08:00] LABS: Glucose - Point of Care 185 mg/dl (70-99)
[2025-04-21] MEDS: ASPIR LOW (ENTERIC COATED) 81 MG PO (08:09)
[2025-04-21] MEDS: LEXAPRO 10 MG PO (08:09)
[2025-04-21] MEDS: ZESTRIL 20 MG PO ×2 (08:09→20:02)
[2025-04-21] MEDS: LIPITOR 20 MG PO (08:09)
[2025-04-21 08:33] LABS: Blood Urea Nitrogen 24 mg/dl (9-20); Calcium 8.5 mg/dl (8.4-10.2); Carbon Dioxide 19 mmol/L (22-30); Chloride 106 mmol/L (98-107); Estimated Creatinine Clearance 88 ml/min; Glucose 197 mg/dl (70-99); Potassium 4.0 mmol/L (3.5-5.1); Sodium 134 mmol/L (135-145); eGFR > 60.00
--- NOTE | 2025-04-21 10:55 | W.PN.HOSP.TC ---
Today's Communication/Plan
-
Continue to Antibiotic.
for left hallux amputation today.
Assessment / Plan
Assessment / Plan
Impression:
Patient 75 years old with history of diabetes, hypertension, hyperlipidemia, depression who came to the ER with back pain and right hip pain, also abdominal pain, CT abdomen was done in the Er shows:
Scattered small hepatic simple cysts as well as additional subcentimeter low-attenuation hepatic lesions too small to characterize. Borderline diffuse fatty liver. Symmetric renal excretion. Limited evaluation of intestinal tract without oral
contrast, without intestinal obstruction or free air. Prior appendectomy, patient also noted to have UTI and started on Rocephin.
MRI lumbar spine ordered.
Noted to have left big toe infection, podiatry and infectious is consulted
04/21
for left hallux amputation
Assessment/plan:
Sepsis secondary to UTI/left big toe osteomyelitis
Patient meets sepsis criteria on admission with leukocytosis and tachypnea.
Source of infection UTI/osteomyelitis.
Continue Rocephin-infectious is consulted
Urine culture showed MSSA
Acute left distal phalanx osteomyelitis.
Patient with infected, enlarged, red and swollen left big toe
Podiatry consulted.
X-ray shows:
Lucency suggesting cortical bony destructive process involving at least the distal aspect of the distal phalanx of the left great toe,a suspicious for infection/osteomyelitis.
Infectious is consulted.
MRI shows:
First digit cellulitis with osteomyelitis. Probable superimposed pathologic fracture. Interphalangeal joint effusion, suspicious for septic arthritis, as well as fluid distention along the first extensor tendon sheath, raising the possibility of
infectious tenosynovitis.
Low level bone marrow edema is noted within the head of the first proximal phalanx, which may be reactive in nature. Mild/early osteomyelitis cannot be entirely excluded.
04/21
for left hallux amputation
Continue antibiotic as per infectious disease
Mild renal sufficiency.
Resolved
Diarrhea alternate with constipation
Associated with abdominal pain
Back pain with right hip pain.
Continue Medrol pack.
MRI lumbar spine shows:
No acute compression deformity. Scoliosis.
Multilevel discogenic and facet degenerative changes.
L1-2: Mild central canal stenosis.
L2-3: Annular bulge. Endplate osteophyte formation. Posterior central/right paracentral protrusion with inferior extrusion. Advanced central canal and bilateral lateral recess stenosis. Right inferior disc extrusion with probable compression of the
proximal descending right L3 nerve root. Moderate to advanced right and mild left foraminal stenosis.
L3-4: Advanced central canal and bilateral lateral recess stenosis. Severe right foraminal stenosis. Mild left foraminal stenosis.
L4-5: Possible right paracentral superior extruded L4 disc herniation contributing to heterogeneous signal of the superior right lateral recess, resulting in the proximal right lateral recess stenosis, and compression of the descending right L5
nerve root. Advanced central canal and bilateral lateral recess stenosis. Moderate right and advanced left foraminal stenosis.
L5-S1: Left paracentral to posterolateral protrusion. Mild central canal narrowing. Left lateral recess stenosis with mild compression of the left S1 nerve root. Moderate to advanced left foraminal stenosis.
Intramuscular and fascial edema associated with the right psoas muscle and posterior right paraspinal musculature. Most likely muscle strain/partial tear. Other inflammatory or infectious etiology felt to be less likely, though clinical correlation
recommended.
No evidence to suggest discitis or osteomyelitis. No epidural collection to suggest epidural abscess.
History�of�diabetes�mellitus
Continue�home�medication
Insulin�sliding�scale
Diabetic�diet
Hemoglobin A1c 7.9
History�of�hypertension
Continue home meds
History of hyperlipidemia
Continue�statin
History of depression
Continue Lexapro
�
CODE STATUS:�Full�code
DVT�prophylaxis:�Lovenox
Diet:�DM�diet
Family communication: Discussed with daughter at bedside.
Disposition: Continue to Antibiotic.
for left hallux amputation today.
Total time spent on today's encounter was 65 minutes which included time spent in counseling the patient/family regarding diagnosis and treatment plan as listed above, goals of care, and symptom management. Case was discussed with nursing staff,
specialists, and care coordinators/case management. All labs and imaging personally reviewed by me. Remainder the time spent in detailed review of previous records, lab data, imaging, and other medical provider documentation.
Anticipated Discharge: 24 - 48 hours
Subjective/Interval History
-
Date of Service: April 21, 2025
Patient seen and examined at bedside, daughter at bedside.
Denies any chest pain or shortness of breath, no abdominal pain, no nausea, no vomiting, no diarrhea or constipation.
For left hallux amputation today.
Objective Data
-
Labs:
Laboratory Results
04/21/25
06:52
WBC 19.7 H
Hgb 11.0 L
Hct 33.3 L
Plt Count 324
Sodium 134 L
Potassium 4.0
Chloride 106
Carbon Dioxide 19 L
BUN 24 H
Creatinine 0.8
Glucose 197 H
Calcium 8.5
Vital Signs:
Vital Signs
Temp Pulse Resp BP Pulse Ox
98.2 F 63 17 141/67 97
04/21/25 07:50 04/21/25 07:50 04/21/25 07:50 04/21/25 07:50 04/21/25 07:50
I&O
04/20/25 04/21/25 04/22/25
06:59 06:59 06:59
Intake Total 854 / 854 960 / 960
Output Total 1650 / 1650 1260 / 1260
Balance -796 / -796 -300 / -300
Physical Exam
-
General: Well Developed
HEENT: Normocephalic, Atraumatic, Moist Mucous Membranes, No Ptosis, PERRLA and Nose Appears Normal
Respiratory: Clear to Auscultation and Non Labored Respirations
Cardiac: Regular Rhythm and S1/S2
Breast: Deferred by me
GI: Soft, Nontender, Nondistended and Normal Bowel Sounds
Genito-urinary: No Costovertebral Tender
Musculoskeletal: No Clubbing and Other (Redness, swelling left big toe)
Skin: Warm
Neuro: Awake, Alert, Oriented, AO x 3 and No Motor Deficits
Psych: Calm and Confused
[2025-04-21 12:01] LABS: Glucose - Point of Care 168 mg/dl (70-99)
[2025-04-21] MEDS: NOVOLOG FLEXPEN-LOW RESISTANCE 1 UNITS SC ×2 (12:05→18:28)
--- NOTE | 2025-04-21 12:58 | W.PN.ID1 ---
Date of Service
Date of Service: April 21, 2025
Today's Communication
Continue cefazolin.
Assessment / Plan
# Left hallux cellulitis/osteo
# Leukocytosis slightly improved
# Hx DM with neuropathy
- MRI shows distal osteo, septic arthritis, pathological fracture.
- For toe amp today, per Podiatry
- Continue cefazolin
# MSSA bacteruria
- Pt asymptomatic
- Bcx's x 2 neg to date.
- Will treat the S. aureus with cefazolin for now.
# Acute right lower lumbar pain
- MRI: no discitis/osteo/abscess.
+ right psoas muscle and paraspinal muscle strain vs partial tear
# Additional Past Medical History:
Diabetes mellitus
Neuropathy
Hypertension
Dyslipidemia
Depression
Chief Complaint
-: Cellulitis
Subjective / Review of Systems
For toe amp today.
Back pain improved with pain med.
Vital Signs / Physical Exam
Vital Signs
Vital Signs
Temp Pulse Resp BP Pulse Ox
98.2 F 63 17 141/67 97
04/21/25 07:50 04/21/25 07:50 04/21/25 07:50 04/21/25 07:50 04/21/25 07:50
Physical Exam
Constitutional: No Acute Distress and Comfortable
Cardiovascular: Regular Rate and S1/S2
Pulmonary: Clear
Gastrointestinal: Soft, Non Tender and Non Distended
Genito-Urinary: Negative CVA Tenderness
Extremities: Negative Edema
Neurological: AO x 3
Objective Data
Lab Data
Lab Results
04/21/25 06:52
04/21/25 06:52
Estimated Creat Clear 88 ml/min 04/21/25 06:52
Lactic Acid 2.6 mmol/L (0.7-2.0) H 04/18/25 19:54
Total Bilirubin 0.5 mg/dl (0.2-1.3) 04/19/25 05:15
AST 12 U/L (17-59) L 04/19/25 05:15
ALT 13 U/L (0-50) 04/19/25 05:15
Alkaline Phosphatase 73 U/L (38-126) 04/19/25 05:15
Most recent labs reviewed.
Micro Results:
04/18/25 20:00 Urine Culture - Final
Urine S aureus-Methicillin Sensitive
04/18/25 21:59 Blood Culture - Preliminary
Blood/Venous No Growth in 48 hours- Final report to follow
04/18/25 21:59 Blood Culture - Preliminary
Blood/Venous No Growth in 48 hours- Final report to follow
04/20/25 LLE MRI wo contrast: First distal digit cellulitis with osteomyelitis. Probable superimposed pathologic fracture. Interphalangeal joint effusion, suspicious for septic arthritis, as well as fluid distention along the first extensor tendon
sheath, raising the possibility of infectious tenosynovitis. Low level bone marrow edema is noted within the head of the first proximal phalanx, which may be reactive in nature. Mild/early osteomyelitis cannot be entirely excluded.
04/20/25 Lumbar MRI: No evidence to suggest discitis or osteomyelitis. No epidural collection to suggest epidural abscess. Intramuscular and fascial edema associated with the right psoas muscle and posterior right paraspinal musculature. Most likely
muscle strain/partial tear. See full dictated report.
04/19/25 Foot XRAY: Lucency suggesting cortical bony destructive process involving at least the distal aspect of the distal phalanx of the left great toe,a suspicious for infection/osteomyelitis.
--- NOTE | 2025-04-21 16:08 | CM ---
Patient chart reviewed
Continue to Antibiotic.
for left hallux amputation today
PT to eval post-op
PLAN: Anticipate SNF, CM to follow for discharge planning/needs
--- NOTE | 2025-04-21 17:36 | W.PN.SURGUPD ---
Surgical Update
Surgical Update
75 yo M s/p L hallux amputation
-Heel WBAT
-PT/OT
-Dressings to remain C/D/I
-Continue abx for 48 hours
-Will reassess on AM rounds
[2025-04-21 17:40] LABS: Glucose - Point of Care 178 mg/dl (70-99)
[2025-04-21 22:02] LABS: Glucose - Point of Care 205 mg/dl (70-99)
[2025-04-22 02:55] VITALS: BP 144/64
[2025-04-22 02:56] VITALS: BMI 24.7
[2025-04-22] MEDS: DILAUDID 0.5 MG IV ×4 (04:33→17:16)
[2025-04-22] MEDS: ANCEF 10 IV ×3 (05:52→20:57)
[2025-04-22 07:31] VITALS: BP 139/68
[2025-04-22 07:40] LABS: Glucose - Point of Care 172 mg/dl (70-99)
[2025-04-22 07:55] LABS: Hematocrit 34.0 % (39.0-52.0); Hemoglobin 11.2 g/dL (13.0-18.0); Mean Corp Hgb Conc. 32.9 g/dL (33.0-37.0); Mean Corpuscular Volume 90.7 fL (80.0-94.0); Platelet Count 304 10^3/uL (130-400); Red Cell Dist. Width 13.6 % (11.5-14.5)
[2025-04-22 08:30] LABS: Blood Urea Nitrogen 21 mg/dl (9-20); Calcium 8.2 mg/dl (8.4-10.2); Carbon Dioxide 22 mmol/L (22-30); Chloride 104 mmol/L (98-107); Estimated Creatinine Clearance 100 ml/min; Glucose 150 mg/dl (70-99); Potassium 4.3 mmol/L (3.5-5.1); Sodium 135 mmol/L (135-145); eGFR > 60.00
[2025-04-22] MEDS: ASPIR LOW (ENTERIC COATED) 81 MG PO (08:32)
[2025-04-22] MEDS: ZESTRIL 20 MG PO ×2 (08:32→20:49)
[2025-04-22] MEDS: LEXAPRO 10 MG PO (08:32)
[2025-04-22] MEDS: LIPITOR 20 MG PO (08:32)
[2025-04-22] MEDS: NOVOLOG FLEXPEN-LOW RESISTANCE 1 UNITS SC ×2 (08:34→13:35)
[2025-04-22 09:54] VITALS: BP 109/67; BP 122/65; PULSE 104; PULSE 74; O2SAT 97
--- NOTE | 2025-04-22 11:10 | W.PN.HOSP.TC ---
Today's Communication/Plan
-
Continue Antibiotic (discharge antibiotic as per ID).
As per podiatry, surgical cure obtained and okay with oral antibiotics.
Physical therapy recommends rehab.
Patient medically cleared for discharge
Assessment / Plan
Assessment / Plan
Impression:
Patient 75 years old with history of diabetes, hypertension, hyperlipidemia, depression who came to the ER with back pain and right hip pain, also abdominal pain, CT abdomen was done in the Er shows:
Scattered small hepatic simple cysts as well as additional subcentimeter low-attenuation hepatic lesions too small to characterize. Borderline diffuse fatty liver. Symmetric renal excretion. Limited evaluation of intestinal tract without oral
contrast, without intestinal obstruction or free air. Prior appendectomy, patient also noted to have UTI and started on Rocephin.
MRI lumbar spine ordered.
Noted to have left big toe infection, podiatry and infectious is consulted
04/21
for left hallux amputation
04/22
Physical therapy recommends rehab.
Assessment/plan:
Sepsis secondary to UTI/left big toe osteomyelitis
Patient meets sepsis criteria on admission with leukocytosis and tachypnea.
Source of infection UTI/osteomyelitis.
Continue Rocephin-infectious is consulted
Urine culture showed MSSA
Acute left distal phalanx osteomyelitis.
Patient with infected, enlarged, red and swollen left big toe
Podiatry consulted.
X-ray shows:
Lucency suggesting cortical bony destructive process involving at least the distal aspect of the distal phalanx of the left great toe,a suspicious for infection/osteomyelitis.
Infectious is consulted.
MRI shows:
First digit cellulitis with osteomyelitis. Probable superimposed pathologic fracture. Interphalangeal joint effusion, suspicious for septic arthritis, as well as fluid distention along the first extensor tendon sheath, raising the possibility of
infectious tenosynovitis.
Low level bone marrow edema is noted within the head of the first proximal phalanx, which may be reactive in nature. Mild/early osteomyelitis cannot be entirely excluded.
04/21
for left hallux amputation
Continue antibiotic as per infectious disease
04/22
Status post amputation close
As per podiatry, surgical cure obtained and okay with oral antibiotics.
Physical therapy recommends rehab.
Mild renal sufficiency.
Resolved
Diarrhea alternate with constipation
Associated with abdominal pain
Back pain with right hip pain.
Continue Medrol pack.
MRI lumbar spine shows:
No acute compression deformity. Scoliosis.
Multilevel discogenic and facet degenerative changes.
L1-2: Mild central canal stenosis.
L2-3: Annular bulge. Endplate osteophyte formation. Posterior central/right paracentral protrusion with inferior extrusion. Advanced central canal and bilateral lateral recess stenosis. Right inferior disc extrusion with probable compression of the
proximal descending right L3 nerve root. Moderate to advanced right and mild left foraminal stenosis.
L3-4: Advanced central canal and bilateral lateral recess stenosis. Severe right foraminal stenosis. Mild left foraminal stenosis.
L4-5: Possible right paracentral superior extruded L4 disc herniation contributing to heterogeneous signal of the superior right lateral recess, resulting in the proximal right lateral recess stenosis, and compression of the descending right L5
nerve root. Advanced central canal and bilateral lateral recess stenosis. Moderate right and advanced left foraminal stenosis.
L5-S1: Left paracentral to posterolateral protrusion. Mild central canal narrowing. Left lateral recess stenosis with mild compression of the left S1 nerve root. Moderate to advanced left foraminal stenosis.
Intramuscular and fascial edema associated with the right psoas muscle and posterior right paraspinal musculature. Most likely muscle strain/partial tear. Other inflammatory or infectious etiology felt to be less likely, though clinical correlation
recommended.
No evidence to suggest discitis or osteomyelitis. No epidural collection to suggest epidural abscess.
History�of�diabetes�mellitus
Continue�home�medication
Insulin�sliding�scale
Diabetic�diet
Hemoglobin A1c 7.9
History�of�hypertension
Continue home meds
History of hyperlipidemia
Continue�statin
History of depression
Continue Lexapro
�
CODE STATUS:�Full�code
DVT�prophylaxis:�Lovenox
Diet:�DM�diet
Family communication: Discussed with daughter at bedside.
Disposition: Continue Antibiotic (discharge antibiotic as per ID).
As per podiatry, surgical cure obtained and okay with oral antibiotics.
Physical therapy recommends rehab.
Patient medically cleared for discharge
Total time spent on today's encounter was 65 minutes which included time spent in counseling the patient/family regarding diagnosis and treatment plan as listed above, goals of care, and symptom management. Case was discussed with nursing staff,
specialists, and care coordinators/case management. All labs and imaging personally reviewed by me. Remainder the time spent in detailed review of previous records, lab data, imaging, and other medical provider documentation.
Anticipated Discharge: Today
Subjective/Interval History
-
Date of Service: April 22, 2025
Patient seen and examined at bedside, sitting in chair, denies any chest pain or shortness of breath, no abdominal pain, no nausea, no vomiting, no diarrhea or constipation.
Objective Data
-
Labs:
Laboratory Results
04/22/25
06:54
WBC 16.9 H
Hgb 11.2 L
Hct 34.0 L
Plt Count 304
Sodium 135
Potassium 4.3
Chloride 104
Carbon Dioxide 22
BUN 21 H
Creatinine 0.7
Glucose 150 H
Calcium 8.2 L
Vital Signs:
Vital Signs
Temp Pulse Resp BP Pulse Ox
98.2 F 58 18 139/68 97
04/22/25 07:31 04/22/25 07:31 04/22/25 07:31 04/22/25 08:32 04/22/25 07:31
I&O
04/21/25 04/22/25 04/23/25
06:59 06:59 06:59
Intake Total 960 / 960 1010 / 1010
Output Total 1260 / 1260 700 / 700
Balance -300 / -300 310 / 310
Physical Exam
-
General: Well Developed
HEENT: Normocephalic, Atraumatic, Moist Mucous Membranes, No Ptosis, PERRLA and Nose Appears Normal
Respiratory: Clear to Auscultation and Non Labored Respirations
Cardiac: Regular Rhythm and S1/S2
Breast: Deferred by me
GI: Soft, Nontender, Nondistended and Normal Bowel Sounds
Genito-urinary: No Costovertebral Tender
Musculoskeletal: No Clubbing and Other (dressing left big toe)
Skin: Warm
Neuro: Awake, Alert, Oriented, AO x 3 and No Motor Deficits
Psych: Calm and Confused
[2025-04-22 11:36] LABS: Glucose - Point of Care 218 mg/dl (70-99)
--- NOTE | 2025-04-22 12:48 | W.PN.ID1 ---
Date of Service
Date of Service: April 22, 2025
Today's Communication
At time of dc, transition to Augmentin 875mg po bid through 05/03/25.
Assessment / Plan
# Left hallux cellulitis/osteo
# Leukocytosis trending down
# Hx DM with neuropathy
- MRI shows distal osteo, septic arthritis, pathological fracture.
- 04/21 s/p toe amp.
Gram stain GPC chains, cx pending.
- Suspect surgical cure
- Continue cefazolin
- At time of dc, transition to Augmentin 875mg po bid through 05/03 for soft tissue coverage.
# MSSA bacteruria
- Pt asymptomatic
- Bcx's x 2 neg to date.
- Trreat the S. aureus with cefazolin.
- At time of dc, transition to Augmentin 875mg po bid through 05/03/25.
# Acute right lower lumbar pain
- MRI: no discitis/osteo/abscess.
+ right psoas muscle and paraspinal muscle strain vs partial tear
# Additional Past Medical History:
Diabetes mellitus
Neuropathy
Hypertension
Dyslipidemia
Depression
Chief Complaint
-: Cellulitis
Vital Signs / Physical Exam
Vital Signs
Vital Signs
Temp Pulse Resp BP Pulse Ox
98.2 F 58 18 139/68 97
04/22/25 07:31 04/22/25 07:31 04/22/25 07:31 04/22/25 08:32 04/22/25 07:31
Physical Exam
Constitutional: No Acute Distress and Comfortable
Cardiovascular: Regular Rate and S1/S2
Pulmonary: Clear
Gastrointestinal: Soft, Non Tender and Non Distended
Genito-Urinary: Negative CVA Tenderness
Extremities: Negative Edema
Wound: Other (left foot dressing dry)
Neurological: AO x 3
Objective Data
Lab Data
Lab Results
04/22/25 06:54
04/22/25 06:54
Estimated Creat Clear 100 ml/min 04/22/25 06:54
Lactic Acid 2.6 mmol/L (0.7-2.0) H 04/18/25 19:54
Total Bilirubin 0.5 mg/dl (0.2-1.3) 04/19/25 05:15
AST 12 U/L (17-59) L 04/19/25 05:15
ALT 13 U/L (0-50) 04/19/25 05:15
Alkaline Phosphatase 73 U/L (38-126) 04/19/25 05:15
Most recent labs reviewed.
Micro Results:
04/21/25 Unknown Wound Culture - Preliminary
Foot - Left Gram Stain - Preliminary
04/21/25 Unknown Anaerobic Culture - Preliminary
Foot - Left Culture pending. Anaerobic cultures are examined after 3
days incubation. Additional information to follow.
04/18/25 21:59 Blood Culture - Preliminary
Blood/Venous No Growth in 72 hours- Final report to follow
04/18/25 21:59 Blood Culture - Preliminary
Blood/Venous No Growth in 72 hours- Final report to follow
04/18/25 20:00 Urine Culture - Final
Urine S aureus-Methicillin Sensitive
04/20/25 LLE MRI wo contrast: First distal digit cellulitis with osteomyelitis. Probable superimposed pathologic fracture. Interphalangeal joint effusion, suspicious for septic arthritis, as well as fluid distention along the first extensor tendon
sheath, raising the possibility of infectious tenosynovitis. Low level bone marrow edema is noted within the head of the first proximal phalanx, which may be reactive in nature. Mild/early osteomyelitis cannot be entirely excluded.
04/20/25 Lumbar MRI: No evidence to suggest discitis or osteomyelitis. No epidural collection to suggest epidural abscess. Intramuscular and fascial edema associated with the right psoas muscle and posterior right paraspinal musculature. Most likely
muscle strain/partial tear. See full dictated report.
04/19/25 Foot XRAY: Lucency suggesting cortical bony destructive process involving at least the distal aspect of the distal phalanx of the left great toe,a suspicious for infection/osteomyelitis.
Care Review
Plan reviewed with: Physician (Dr. Swan)
--- NOTE | 2025-04-22 13:08 | W.PN.UPDATE ---
Update Note
Progress Note Update
75 yo M s/p L hallux amputation. Doing well this AM
-Heel WBAT in surgical shoe
-PT/OT
-Dressings to remain C/D/I
-Continue abx for 48 hours
-May follow up in office
[2025-04-22 13:35] LABS: Glucose - Point of Care 186 mg/dl (70-99)
--- NOTE | 2025-04-22 14:13 | CM ---
Therapy recommendation for SNF. Met with patient and son. Provided [employer] list. Patient and son discussed with additional family members and chose preferences: [facility]; [facility]; [facility]; and [facility]. Will
send referrals.
[2025-04-22 15:16] VITALS: BP 125/60
[2025-04-22] MEDS: SENOKOT-S 1 TABLET PO (17:15)
[2025-04-22] MEDS: MIRALAX 17 GRAMS PO (17:16)
[2025-04-22 17:29] LABS: Glucose - Point of Care 213 mg/dl (70-99)
[2025-04-22] MEDS: NOVOLOG FLEXPEN-LOW RESISTANCE 2 UNITS SC (17:57)
[2025-04-22] MEDS: PERCOCET 5/325 1 TABLET PO (20:56)
[2025-04-22 21:05] LABS: Glucose - Point of Care 199 mg/dl (70-99)
[2025-04-22 23:00] VITALS: BP 154/66
[2025-04-23 05:40] VITALS: BMI 24.1
[2025-04-23] MEDS: ANCEF 10 IV ×3 (05:48→22:26)
[2025-04-23 06:00] VITALS: BMI 24.1
[2025-04-23 07:49] VITALS: BP 140/58
[2025-04-23 07:56] LABS: Hematocrit 34.5 % (39.0-52.0); Hemoglobin 11.5 g/dL (13.0-18.0); Mean Corp Hgb Conc. 33.3 g/dL (33.0-37.0); Mean Corpuscular Volume 90.3 fL (80.0-94.0); Platelet Count 284 10^3/uL (130-400); Red Cell Dist. Width 13.8 % (11.5-14.5)
[2025-04-23 08:25] LABS: Blood Urea Nitrogen 19 mg/dl (9-20); Calcium 8.7 mg/dl (8.4-10.2); Carbon Dioxide 25 mmol/L (22-30); Chloride 103 mmol/L (98-107); Estimated Creatinine Clearance 100 ml/min; Glucose 168 mg/dl (70-99); Potassium 4.4 mmol/L (3.5-5.1); Sodium 135 mmol/L (135-145); eGFR > 60.00
--- NOTE | 2025-04-23 08:56 | PTCARENOTE ---
Accucheck this morning 164. Accucheck machine malfunctioning and work order placed.
[2025-04-23] MEDS: LIPITOR 20 MG PO (08:59)
[2025-04-23] MEDS: ASPIR LOW (ENTERIC COATED) 81 MG PO (08:59)
[2025-04-23] MEDS: LEXAPRO 10 MG PO (08:59)
[2025-04-23] MEDS: NOVOLOG FLEXPEN-LOW RESISTANCE 1 UNITS SC ×3 (09:03→18:34)
[2025-04-23 09:11] LABS: Glucose - Point of Care 164 mg/dl (70-99)
[2025-04-23] MEDS: ZESTRIL 20 MG PO ×2 (09:23→22:24)
[2025-04-23] MEDS: DILAUDID 0.5 MG IV ×3 (09:23→18:37)
--- NOTE | 2025-04-23 11:53 | W.PN.HOSP.TC ---
Today's Communication/Plan
-
Physical therapy recommends rehab.
Patient medically cleared for discharge
Assessment / Plan
Assessment / Plan
Impression:
Patient 75 years old with history of diabetes, hypertension, hyperlipidemia, depression who came to the ER with back pain and right hip pain, also abdominal pain, CT abdomen was done in the Er shows:
Scattered small hepatic simple cysts as well as additional subcentimeter low-attenuation hepatic lesions too small to characterize. Borderline diffuse fatty liver. Symmetric renal excretion. Limited evaluation of intestinal tract without oral
contrast, without intestinal obstruction or free air. Prior appendectomy, patient also noted to have UTI and started on Rocephin.
MRI lumbar spine ordered.
Noted to have left big toe infection, podiatry and infectious is consulted
04/21
for left hallux amputation
04/22
Physical therapy recommends rehab.
Assessment/plan:
Sepsis secondary to UTI/left big toe osteomyelitis
Patient meets sepsis criteria on admission with leukocytosis and tachypnea.
Source of infection UTI/osteomyelitis.
Continue Rocephin-infectious is consulted
Urine culture showed MSSA
Acute left distal phalanx osteomyelitis.
Patient with infected, enlarged, red and swollen left big toe
Podiatry consulted.
X-ray shows:
Lucency suggesting cortical bony destructive process involving at least the distal aspect of the distal phalanx of the left great toe,a suspicious for infection/osteomyelitis.
Infectious is consulted.
MRI shows:
First digit cellulitis with osteomyelitis. Probable superimposed pathologic fracture. Interphalangeal joint effusion, suspicious for septic arthritis, as well as fluid distention along the first extensor tendon sheath, raising the possibility of
infectious tenosynovitis.
Low level bone marrow edema is noted within the head of the first proximal phalanx, which may be reactive in nature. Mild/early osteomyelitis cannot be entirely excluded.
04/21
for left hallux amputation
Continue antibiotic as per infectious disease
04/22
Status post amputation close
As per podiatry, surgical cure obtained and okay with oral antibiotics.
Physical therapy recommends rehab.
04/23
Infectious is recommending At time of dc, transition to Augmentin 875mg po bid through 05/03/25.
Mild renal sufficiency.
Resolved
Diarrhea alternate with constipation
Associated with abdominal pain
Back pain with right hip pain.
Continue Medrol pack.
MRI lumbar spine shows:
No acute compression deformity. Scoliosis.
Multilevel discogenic and facet degenerative changes.
L1-2: Mild central canal stenosis.
L2-3: Annular bulge. Endplate osteophyte formation. Posterior central/right paracentral protrusion with inferior extrusion. Advanced central canal and bilateral lateral recess stenosis. Right inferior disc extrusion with probable compression of the
proximal descending right L3 nerve root. Moderate to advanced right and mild left foraminal stenosis.
L3-4: Advanced central canal and bilateral lateral recess stenosis. Severe right foraminal stenosis. Mild left foraminal stenosis.
L4-5: Possible right paracentral superior extruded L4 disc herniation contributing to heterogeneous signal of the superior right lateral recess, resulting in the proximal right lateral recess stenosis, and compression of the descending right L5
nerve root. Advanced central canal and bilateral lateral recess stenosis. Moderate right and advanced left foraminal stenosis.
L5-S1: Left paracentral to posterolateral protrusion. Mild central canal narrowing. Left lateral recess stenosis with mild compression of the left S1 nerve root. Moderate to advanced left foraminal stenosis.
Intramuscular and fascial edema associated with the right psoas muscle and posterior right paraspinal musculature. Most likely muscle strain/partial tear. Other inflammatory or infectious etiology felt to be less likely, though clinical correlation
recommended.
No evidence to suggest discitis or osteomyelitis. No epidural collection to suggest epidural abscess.
Follow-up with orthopedic as OP.
History�of�diabetes�mellitus
Continue�home�medication
Insulin�sliding�scale
Diabetic�diet
Hemoglobin A1c 7.9
History�of�hypertension
Continue home meds
History of hyperlipidemia
Continue�statin
History of depression
Continue Lexapro
�
CODE STATUS:�Full�code
DVT�prophylaxis:�Lovenox
Diet:�DM�diet
Family communication: Discussed with daughter at bedside.
Disposition: Continue Antibiotic (discharge antibiotic as per ID).
As per podiatry, surgical cure obtained and okay with oral antibiotics.
Physical therapy recommends rehab.
Patient medically cleared for discharge
Total time spent on today's encounter was 65 minutes which included time spent in counseling the patient/family regarding diagnosis and treatment plan as listed above, goals of care, and symptom management. Case was discussed with nursing staff,
specialists, and care coordinators/case management. All labs and imaging personally reviewed by me. Remainder the time spent in detailed review of previous records, lab data, imaging, and other medical provider documentation.
Anticipated Discharge: Today
Subjective/Interval History
-
Date of Service: April 23, 2025
Patient seen and examined at bedside, denies any chest pain or shortness of breath, no abdominal pain, no nausea, no vomiting, no diarrhea or constipation.
Back pain.
Objective Data
-
Labs:
Laboratory Results
04/23/25
07:31
WBC 14.9 H
Hgb 11.5 L
Hct 34.5 L
Plt Count 284
Sodium 135
Potassium 4.4
Chloride 103
Carbon Dioxide 25
BUN 19
Creatinine 0.7
Glucose 168 H
Calcium 8.7
Vital Signs:
Vital Signs
Temp Pulse Resp BP Pulse Ox
98.7 F 57 18 140/58 96
04/23/25 07:49 04/23/25 07:49 04/23/25 07:49 04/23/25 07:49 04/23/25 07:49
I&O
04/22/25 04/23/2504/24/25
06:59 06:59 06:59
Intake Total 1010 / 1010 1140 / 1140
Output Total 700 / 700 1500 / 1500
Balance 310 / 310 -360 / -360
Physical Exam
-
General: Well Developed
HEENT: Normocephalic, Atraumatic, Moist Mucous Membranes, No Ptosis, PERRLA and Nose Appears Normal
Respiratory: Clear to Auscultation and Non Labored Respirations
Cardiac: Regular Rhythm and S1/S2
Breast: Deferred by me
GI: Soft, Nontender, Nondistended and Normal Bowel Sounds
Genito-urinary: No Costovertebral Tender
Musculoskeletal: No Clubbing and Other (dressing left big toe)
Skin: Warm
Neuro: Awake, Alert, Oriented, AO x 3 and No Motor Deficits
Psych: Calm and Confused
[2025-04-23 11:54] LABS: Glucose - Point of Care 199 mg/dl (70-99)
[2025-04-23] MEDS: CITROMA 300 ML PO (14:46)
[2025-04-23 15:27] VITALS: BP 107/57
[2025-04-23 16:54] LABS: Glucose - Point of Care 185 mg/dl (70-99)
[2025-04-23 21:37] LABS: Glucose - Point of Care 188 mg/dl (70-99)
[2025-04-23] MEDS: TYLENOL 650 MG PO (22:22)
--- NOTE | 2025-04-23 23:26 | OR.RPT ---
Operative Report
Operative Report
Operative Report
Patient:�Chris Oneill
MRN:�[id number]
Date of Surgery:�04/21/2025
Surgeon:�Frankie Mejia DPM
Anesthesia:�Monitored anesthesia care with local infiltration
Preoperative Diagnosis:
Osteomyelitis of the left hallux confirmed on MRI
Postoperative Diagnosis:
Same as preoperative
Procedure Performed:
Left hallux amputation with primary closure CPT 06893
Estimated Blood Loss:�<50 mL
Specimens:�Left hallux sent for pathology
Complications:�None
Indications for Surgery:
The patient presented with chronic infection of the left hallux, with MRI demonstrating osteomyelitis involving the hallux. Conservative management of antibiotics had failed, and given the extent of bony involvement, surgical amputation of the
hallux was indicated to remove infected bone and allow for definitive treatment.
Procedure in Detail:
After informed consent was obtained, the patient was brought to the operating room and placed supine on the operating table. Following induction of monitored anesthesia care, the left foot was prepped and draped in the usual sterile fashion.
Attention was directed to the left hallux. An elliptical fish-mouth type incision was made at the level of the metatarsophalangeal joint. Dissection was carried through subcutaneous tissue down to the joint capsule. The hallux was disarticulated at
the metatarsophalangeal joint, and the specimen was removed in toto. Necrotic bone consistent with osteomyelitis was noted. The wound was irrigated thoroughly with copious normal saline.
Hemostasis was achieved with electrocautery. The soft tissue flaps were approximated over the metatarsal head. Deep tissues were closed with interrupted 3-0 Monocryl. The skin was closed with interrupted 3-0 Prolene in simple interrupted fashion. A
sterile, lightly compressive dressing was applied.�The patient tolerated the procedure well and was transported to the recovery room in stable condition. Patient can continue antibiotics and will be heel weightbearing as tolerated in a surgical.
Patient will follow up in clinic in 2 weeks for incision check and possible suture removal.
[2025-04-23 23:30] VITALS: BP 133/55
[2025-04-24 04:49] VITALS: BMI 24.5
[2025-04-24] MEDS: ANCEF 10 IV ×3 (05:49→20:52)
[2025-04-24 07:15] VITALS: BP 133/68
[2025-04-24 07:45] LABS: Glucose - Point of Care 193 mg/dl (70-99)
[2025-04-24 08:54] LABS: Hematocrit 33.7 % (39.0-52.0); Hemoglobin 11.0 g/dL (13.0-18.0); Mean Corp Hgb Conc. 32.6 g/dL (33.0-37.0); Mean Corpuscular Volume 91.6 fL (80.0-94.0); Platelet Count 276 10^3/uL (130-400); Red Cell Dist. Width 13.8 % (11.5-14.5)
[2025-04-24] MEDS: ZESTRIL 20 MG PO ×2 (09:51→20:51)
[2025-04-24] MEDS: LEXAPRO 10 MG PO (09:51)
[2025-04-24] MEDS: ASPIR LOW (ENTERIC COATED) 81 MG PO (09:51)
[2025-04-24] MEDS: LIPITOR 20 MG PO (09:51)
[2025-04-24] MEDS: DILAUDID 0.5 MG IV (09:51)
[2025-04-24] MEDS: NOVOLOG FLEXPEN-LOW RESISTANCE 1 UNITS SC ×2 (09:53→12:36)
--- NOTE | 2025-04-24 10:49 | W.PN.HOSP.TC ---
Today's Communication/Plan
-
Continue Antibiotic (discharge on Augmentin ).
Patient medically cleared for discharge
Assessment / Plan
Assessment / Plan
Impression:
Patient 75 years old with history of diabetes, hypertension, hyperlipidemia, depression who came to the ER with back pain and right hip pain, also abdominal pain, CT abdomen was done in the Er shows:
Scattered small hepatic simple cysts as well as additional subcentimeter low-attenuation hepatic lesions too small to characterize. Borderline diffuse fatty liver. Symmetric renal excretion. Limited evaluation of intestinal tract without oral
contrast, without intestinal obstruction or free air. Prior appendectomy, patient also noted to have UTI and started on Rocephin.
MRI lumbar spine ordered.
Noted to have left big toe infection, podiatry and infectious is consulted
04/21
for left hallux amputation
04/22
Physical therapy recommends rehab.
04/24
Wound culture came back MSSA, sensitive to Augmentin
Assessment/plan:
Sepsis secondary to UTI/left big toe osteomyelitis
Patient meets sepsis criteria on admission with leukocytosis and tachypnea.
Source of infection UTI/osteomyelitis.
Continue Rocephin-infectious is consulted
Urine culture showed MSSA
Acute left distal phalanx osteomyelitis.
Patient with infected, enlarged, red and swollen left big toe
Podiatry consulted.
X-ray shows:
Lucency suggesting cortical bony destructive process involving at least the distal aspect of the distal phalanx of the left great toe,a suspicious for infection/osteomyelitis.
Infectious is consulted.
MRI shows:
First digit cellulitis with osteomyelitis. Probable superimposed pathologic fracture. Interphalangeal joint effusion, suspicious for septic arthritis, as well as fluid distention along the first extensor tendon sheath, raising the possibility of
infectious tenosynovitis.
Low level bone marrow edema is noted within the head of the first proximal phalanx, which may be reactive in nature. Mild/early osteomyelitis cannot be entirely excluded.
04/21
for left hallux amputation
Continue antibiotic as per infectious disease
04/22
Status post amputation close
As per podiatry, surgical cure obtained and okay with oral antibiotics.
Physical therapy recommends rehab.
04/23
Infectious is recommending At time of dc, transition to Augmentin 875mg po bid through 05/03/25.
04/24
Wound culture came back MSSA, sensitive to Augmentin
Mild renal sufficiency.
Resolved
Diarrhea alternate with constipation
Associated with abdominal pain
Back pain with right hip pain.
Continue Medrol pack.
MRI lumbar spine shows:
No acute compression deformity. Scoliosis.
Multilevel discogenic and facet degenerative changes.
L1-2: Mild central canal stenosis.
L2-3: Annular bulge. Endplate osteophyte formation. Posterior central/right paracentral protrusion with inferior extrusion. Advanced central canal and bilateral lateral recess stenosis. Right inferior disc extrusion with probable compression of the
proximal descending right L3 nerve root. Moderate to advanced right and mild left foraminal stenosis.
L3-4: Advanced central canal and bilateral lateral recess stenosis. Severe right foraminal stenosis. Mild left foraminal stenosis.
L4-5: Possible right paracentral superior extruded L4 disc herniation contributing to heterogeneous signal of the superior right lateral recess, resulting in the proximal right lateral recess stenosis, and compression of the descending right L5
nerve root. Advanced central canal and bilateral lateral recess stenosis. Moderate right and advanced left foraminal stenosis.
L5-S1: Left paracentral to posterolateral protrusion. Mild central canal narrowing. Left lateral recess stenosis with mild compression of the left S1 nerve root. Moderate to advanced left foraminal stenosis.
Intramuscular and fascial edema associated with the right psoas muscle and posterior right paraspinal musculature. Most likely muscle strain/partial tear. Other inflammatory or infectious etiology felt to be less likely, though clinical correlation
recommended.
No evidence to suggest discitis or osteomyelitis. No epidural collection to suggest epidural abscess.
Follow-up with orthopedic as OP.
History�of�diabetes�mellitus
Continue�home�medication
Insulin�sliding�scale
Diabetic�diet
Hemoglobin A1c 7.9
History�of�hypertension
Continue home meds
History of hyperlipidemia
Continue�statin
History of depression
Continue Lexapro
�
CODE STATUS:�Full�code
DVT�prophylaxis:�Lovenox
Diet:�DM�diet
Family communication: Discussed with daughter at bedside.
Disposition: Continue Antibiotic (discharge on Augmentin ).
Patient medically cleared for discharge
Total time spent on today's encounter was 65 minutes which included time spent in counseling the patient/family regarding diagnosis and treatment plan as listed above, goals of care, and symptom management. Case was discussed with nursing staff,
specialists, and care coordinators/case management. All labs and imaging personally reviewed by me. Remainder the time spent in detailed review of previous records, lab data, imaging, and other medical provider documentation.
Anticipated Discharge: Today
Subjective/Interval History
-
Date of Service: April 24, 2025
Patient seen and examined at bedside, denies any chest pain or shortness of breath, no abdominal pain, no nausea, no vomiting, no diarrhea or constipation.
Objective Data
-
Labs:
Laboratory Results
04/24/25
08:03
WBC 14.0 H
Hgb 11.0 L
Hct 33.7 L
Plt Count 276
Vital Signs:
Vital Signs
Temp Pulse Resp BP Pulse Ox
97.7 F 54 16 133/68 100
04/24/25 07:15 04/24/25 07:15 04/24/25 07:15 04/24/25 07:15 04/24/25 07:15
I&O
04/23/25 04/24/25 04/25/25
06:59 06:59 06:59
Intake Total 1140 / 1140 930 / 930
Output Total 1500 / 1500 500 / 500
Balance -360 / -360 430 / 430
Physical Exam
-
General: Well Developed
HEENT: Normocephalic, Atraumatic, Moist Mucous Membranes, No Ptosis, PERRLA and Nose Appears Normal
Respiratory: Clear to Auscultation and Non Labored Respirations
Cardiac: Regular Rhythm and S1/S2
Breast: Deferred by me
GI: Soft, Nontender, Nondistended and Normal Bowel Sounds
Genito-urinary: No Costovertebral Tender
Musculoskeletal: No Clubbing and Other (dressing left big toe)
Skin: Warm
Neuro: Awake, Alert, Oriented, AO x 3 and No Motor Deficits
Psych: Calm and Confused
[2025-04-24 12:03] LABS: Glucose - Point of Care 188 mg/dl (70-99)
[2025-04-24] MEDS: PERCOCET 5/325 1 TABLET PO ×2 (14:44→19:33)
[2025-04-24 15:20] VITALS: BP 137/64
[2025-04-24 15:34] VITALS: BP 137/64
[2025-04-24 16:48] LABS: Glucose - Point of Care 216 mg/dl (70-99)
[2025-04-24] MEDS: NOVOLOG FLEXPEN-LOW RESISTANCE 2 UNITS SC (17:02)
[2025-04-24 21:49] LABS: Glucose - Point of Care 212 mg/dl (70-99)
[2025-04-24 23:02] VITALS: BP 131/58
[2025-04-25] MEDS: PERCOCET 5/325 1 TABLET PO ×3 (05:18→21:13)
[2025-04-25] MEDS: ANCEF 10 IV ×3 (05:19→21:13)
[2025-04-25 06:00] VITALS: BMI 24.5
[2025-04-25 07:00] VITALS: BP 130/59
[2025-04-25 07:11] LABS: Hematocrit 31.2 % (39.0-52.0); Hemoglobin 10.3 g/dL (13.0-18.0); Mean Corp Hgb Conc. 33.0 g/dL (33.0-37.0); Mean Corpuscular Volume 92.0 fL (80.0-94.0); Platelet Count 247 10^3/uL (130-400); Red Cell Dist. Width 13.9 % (11.5-14.5)
[2025-04-25 08:08] LABS: Glucose - Point of Care 184 mg/dl (70-99)
[2025-04-25] MEDS: ASPIR LOW (ENTERIC COATED) 81 MG PO (08:38)
[2025-04-25] MEDS: LIPITOR 20 MG PO (08:38)
[2025-04-25] MEDS: LEXAPRO 10 MG PO (08:38)
[2025-04-25] MEDS: ZESTRIL 20 MG PO ×2 (09:13→21:11)
[2025-04-25] MEDS: NOVOLOG FLEXPEN-LOW RESISTANCE 1 UNITS SC ×2 (09:14→17:51)
[2025-04-25 11:53] LABS: Glucose - Point of Care 200 mg/dl (70-99)
[2025-04-25] MEDS: TYLENOL 650 MG PO ×2 (11:56→17:50)
[2025-04-25] MEDS: NOVOLOG FLEXPEN-LOW RESISTANCE 2 UNITS SC (12:48)
--- NOTE | 2025-04-25 13:18 | CM ---
Patient seen at bedside with son
spoke with Wendy at [facility]
Accepted at [facility]-bed available tomorrow
tt hospitalist
Will need COVID test
no preauth
IMM explained & signed. In chart
PLAN: [facility]
REPORT #: [phone]
FAX #: [phone]
--- NOTE | 2025-04-25 14:05 | PTCARENOTE ---
With the instruction from the MD. This nurse reached out to Dr. Mejia for wound care instruction when pt. heads to facility per Dr. Mejia 'change his dressings twice weekly with Betadine and gauze. He should see me in my office in 2 weeks.
[facility] orthopedic specialists'
[2025-04-25 14:34] VITALS: BP 140/59; PULSE 56; O2SAT 96
[2025-04-25 14:36] VITALS: BP 140/59; PULSE 56; O2SAT 96
[2025-04-25 15:25] LABS: C-Reactive Protein 62.40 mg/L (0.0-10.00)
--- NOTE | 2025-04-25 15:25 | W.PN.ID1 ---
Date of Service
Date of Service: April 25, 2025
Today's Communication
Continue cefazolin pending repeat MRI.
Assessment / Plan
# Left hallux cellulitis/osteo
# Leukocytosis trending down
# Hx DM with neuropathy
- MRI shows distal osteo, septic arthritis, pathological fracture.
- 04/21 s/p toe amp.
cx MSSA
Path pending
- Suspect surgical cure
- Continue cefazolin
- At time of dc, transition to cephalexin 500mg po qid through 05/03 for soft tissue coverage.
# MSSA bacteruria
- Pt asymptomatic
- Bcx's x 2 neg
- Treat the S. aureus with cefazolin.
- At time of dc, transition to cephalexin 500mg po qid through 05/03
# Acute right lower lumbar pain
- MRI wo contrast: no discitis/osteo/abscess. + right psoas muscle and paraspinal muscle strain vs partial tear
- For repeat MRI wo and w contrast to better assess back pain/discitis per hospitalist
# Additional Past Medical History:
Diabetes mellitus
Neuropathy
Hypertension
Dyslipidemia
Depression
Chief Complaint
-: Cellulitis
Subjective / Review of Systems
R lower back pain overall improving with Percocet.
Vital Signs / Physical Exam
Vital Signs
Vital Signs
Temp Pulse Resp BP Pulse Ox
98.4 F 50 18 130/59 99
04/25/25 07:00 04/25/25 09:13 04/25/25 07:00 04/25/25 09:13 04/25/25 07:00
Physical Exam
Constitutional: No Acute Distress
Eyes: No Conjunctival Hemorrhage and Sclera Anicteric
Pulmonary: Clear
Gastrointestinal: Soft, Non Tender and Non Distended
Genito-Urinary: Negative CVA Tenderness
Musculoskeletal: Negative Spinal Tenderness
Neurological: Awake and Alert
Objective Data
Lab Data
Lab Results
04/25/25 06:55
04/23/25 07:31
Estimated Creat Clear 100 ml/min 04/23/25 07:31
Lactic Acid 2.6 mmol/L (0.7-2.0) H 04/18/25 19:54
Total Bilirubin 0.5 mg/dl (0.2-1.3) 04/19/25 05:15
AST 12 U/L (17-59) L 04/19/25 05:15
ALT 13 U/L (0-50) 04/19/25 05:15
Alkaline Phosphatase 73 U/L (38-126) 04/19/25 05:15
C-Reactive Protein 62.40 mg/L (0.0-10.00) H 04/25/25 14:45
Most recent labs reviewed.
Micro Results:
04/21/25 Unknown Anaerobic Culture - Preliminary
Foot - Left Culture pending. Anaerobic cultures are examined after 3
days incubation. Additional information to follow.
04/21/25 Unknown Wound Culture - Preliminary
Foot - Left S aureus-Methicillin Sensitive
Gram Stain - Preliminary
04/18/25 21:59 Blood Culture - Final
Blood/Venous No Growth - Final Report
04/18/25 21:59 Blood Culture - Final
Blood/Venous No Growth - Final Report
04/18/25 20:00 Urine Culture - Final
Urine S aureus-Methicillin Sensitive
04/20/25 LLE MRI wo contrast: First distal digit cellulitis with osteomyelitis. Probable superimposed pathologic fracture. Interphalangeal joint effusion, suspicious for septic arthritis, as well as fluid distention along the first extensor tendon
sheath, raising the possibility of infectious tenosynovitis. Low level bone marrow edema is noted within the head of the first proximal phalanx, which may be reactive in nature. Mild/early osteomyelitis cannot be entirely excluded.
04/20/25 Lumbar MRI: No evidence to suggest discitis or osteomyelitis. No epidural collection to suggest epidural abscess. Intramuscular and fascial edema associated with the right psoas muscle and posterior right paraspinal musculature. Most likely
muscle strain/partial tear. See full dictated report.
04/19/25 Foot XRAY: Lucency suggesting cortical bony destructive process involving at least the distal aspect of the distal phalanx of the left great toe,a suspicious for infection/osteomyelitis.
Care Review
Plan reviewed with: Physician (Dr. Pratt)
[2025-04-25 16:01] VITALS: BP 136/60
[2025-04-25 16:47] LABS: Glucose - Point of Care 181 mg/dl (70-99)
--- NOTE | 2025-04-25 17:45 | W.PN.HOSP.TC ---
Today's Communication/Plan
-
Neurosurgery evaluation.
IV antibiotics
Assessment / Plan
Assessment / Plan
Impression
Left hallux cellulitis/osteomyelitis
Sepsis present on admission now resolved
MSSA bacteriuria without evidence of UTI
Persistent leukocytosis
Resistant lower back/right flank pain.
Elevated inflammatory markers.
CARLENE resolved
Other conditions
NIDDM.
Essential hypertension
Dyslipidemia.
Depression.
Plan:
Left hallux cellulitis with osteomyelitis confirmed with MRI consistent with osteomyelitis, septic arthritis and pathological fracture.
Status post toe amputation on 04/21.
Intraoperative culture with MSSA
Blood cultures negative to date
Path pending.
Antibiotics narrowed to cefazolin.
Persistent lower back/right flank pain.
MRI of the lumbar spine without contrast with multilevel DJD, right psoas muscle strain, nonspecific pain
Noted with persistent leukocytosis despite full source control.
Also concern with MSSA bacteriuria (likely secondary seeding)
Mildly elevated inflammatory markers
Repeated MRI with and without IV contrast on 04/25 with severe septic arthritis of the right L3-L4 facet joint, epidural abscesses posterior to L3, L4 vertebral bodies, 15 cm in length tubular abscess in the right psoas muscle, 7.5 cm in length
tubular abscess in the right posterior paraspinal muscles, severe myositis in the right psoas and the right posterior paraspinal muscles surrounding the abscesses.
Neurosurgery evaluation.
If no neurosurgical intervention planned, would consider [facility] consultation for abscess drain
Continue IV antibiotics as per ID
Will check echocardiogram to rule out endovascular infection for completeness
Mild CARLENE creatinine improved 1.3�0.7
Diabetes mellitus
Hemoglobin A1c 7.9
Insulin sliding scale
Hold metformin acutely.
Essential hypertension.
Continue lisinopril monitor renal function
Hold HCTZ acutely
Anticipated Discharge: > 48 hours
Subjective/Interval History
-
Date of Service: April 25, 2025
Objective Data
-
Labs:
Laboratory Results
04/25/25
06:55
WBC 12.4 H
Hgb 10.3 L
Hct 31.2 L
Plt Count 247
Vital Signs:
Vital Signs
Temp Pulse Resp BP Pulse Ox
97.8 F 53 18 136/60 97
04/25/25 16:01 04/25/25 16:01 04/25/25 16:01 04/25/25 16:01 04/25/25 16:01
I&O
04/24/25 04/25/25 04/26/25
06:59 06:59 06:59
Intake Total 930 / 930 1320 / 1320
Output Total 500 / 500 1150 / 1150
Balance 430 / 430 170 / 170
Physical Exam
-
General: Well Developed
HEENT: Normocephalic, Atraumatic, Moist Mucous Membranes, No Ptosis, PERRLA and Nose Appears Normal
Respiratory: Clear to Auscultation and Non Labored Respirations
Cardiac: Regular Rhythm and S1/S2
Breast: Deferred by me
GI: Soft, Nontender, Nondistended and Normal Bowel Sounds
Genito-urinary: No Costovertebral Tender
Musculoskeletal: No Clubbing and Other (dressing left big toe)
Skin: Warm
Neuro: Awake, Alert, Oriented, AO x 3 and No Motor Deficits
Psych: Calm and Confused
[2025-04-25 21:48] LABS: Glucose - Point of Care 231 mg/dl (70-99)
[2025-04-25 23:19] VITALS: BP 127/60
[2025-04-26] MEDS: ANCEF 10 IV ×3 (05:43→23:03)
[2025-04-26 06:00] VITALS: BMI 24.0
[2025-04-26 07:38] LABS: Glucose - Point of Care 176 mg/dl (70-99)
[2025-04-26] MEDS: PERCOCET 5/325 1 TABLET PO ×3 (07:40→19:29)
[2025-04-26] MEDS: ASPIR LOW (ENTERIC COATED) 81 MG PO (07:41)
[2025-04-26] MEDS: LEXAPRO 10 MG PO (07:41)
[2025-04-26] MEDS: ZESTRIL 20 MG PO ×2 (07:42→19:43)
[2025-04-26] MEDS: LIPITOR 20 MG PO (07:42)
[2025-04-26 07:52] LABS: Blood Urea Nitrogen 13 mg/dl (9-20); Calcium 8.3 mg/dl (8.4-10.2); Carbon Dioxide 28 mmol/L (22-30); Chloride 104 mmol/L (98-107); Estimated Creatinine Clearance 88 ml/min; Glucose 179 mg/dl (70-99); Potassium 4.9 mmol/L (3.5-5.1); Sodium 136 mmol/L (135-145); eGFR > 60.00
[2025-04-26 07:58] LABS: Hematocrit 33.4 % (39.0-52.0); Hemoglobin 11.0 g/dL (13.0-18.0); Mean Corp Hgb Conc. 32.9 g/dL (33.0-37.0); Mean Corpuscular Volume 89.5 fL (80.0-94.0); Nucleated Red Blood Cells % 0 % (-); Platelet Count 248 10^3/uL (130-400); Red Cell Dist. Width 13.9 % (11.5-14.5)
[2025-04-26 08:09] VITALS: BP 143/68
[2025-04-26] MEDS: NOVOLOG FLEXPEN-LOW RESISTANCE 1 UNITS SC (09:27)
--- NOTE | 2025-04-26 11:05 | W.PN.ID1 ---
Date of Service
Date of Service: April 26, 2025
Today's Communication
IR abscess drainage, send cx.
Continue cefazolin, anticipate 8 weeks.
Assessment / Plan
# Right psoas muscle abscess
# L3-L4 anterior epidural abscess
# Left hallux cellulitis/osteo
. 04/21 s/p toe amp.
. cx MSSA
. Path pending
# MSSA bacteruria
. asymptomatic
# Leukocytosis trending down
# Hx DM with neuropathy
- Blood cx's x2 negative
- 04/20 MRI L spine wo contrast report: 'no discitis/osteo/abscess'. + right psoas muscle and paraspinal muscle strain vs partial tear
- 04/25 MRI L spine wo and with contrast report: septic arthritis L3/L4 with anterior epidural abscess (1.9cm), 15 cm R psoas abscess, 7.5 cm R paraspinal muscle abscess
-For IR drainage of abscesses. Send cx
- Neurosurgery evaluation
- Suspect toe osteo as source of lumbar abscesses via transient bacteremia. Suspect MSSA as from toe and urine.
- Continue cefazolin 2g IV q8h (d7). Anticipate 8 or more weeks of IV abx.
- Trend CRp/ESR weekly.
# Additional Past Medical History:
Diabetes mellitus
Neuropathy
Hypertension
Dyslipidemia
Depression
Chief Complaint
-: Cellulitis and Other (back pain)
Subjective / Review of Systems
Back pain controlled with percocet.
Vital Signs / Physical Exam
Vital Signs
Vital Signs
Temp Pulse Resp BP Pulse Ox
98.7 F 52 14 143/68 98
04/26/25 08:09 04/26/25 08:09 04/26/25 08:09 04/26/25 08:09 04/26/25 08:09
Physical Exam
Constitutional: No Acute Distress
Cardiovascular: Regular Rate and S1/S2
Gastrointestinal: Soft, Non Tender, Non Distended and Normal Bowel Sounds
Extremities: Negative Edema
Neurological: Awake, Alert and Other (Can actively move lower extremities.)
Objective Data
Lab Data
Lab Results
04/26/25 06:35
04/26/25 06:35
ESR 84 mm/hour (0-20) H 04/25/25 14:46
Estimated Creat Clear 88 ml/min 04/26/25 06:35
Lactic Acid 2.6 mmol/L (0.7-2.0) H 04/18/25 19:54
Total Bilirubin 0.5 mg/dl (0.2-1.3) 04/19/25 05:15
AST 12 U/L (17-59) L 04/19/25 05:15
ALT 13 U/L (0-50) 04/19/25 05:15
Alkaline Phosphatase 73 U/L (38-126) 04/19/25 05:15
C-Reactive Protein 62.40 mg/L (0.0-10.00) H 04/25/25 14:45
Most recent labs reviewed.
Micro Results:
04/21/25 Unknown Wound Culture - Final
Foot - Left S aureus-Methicillin Sensitive
Gram Stain - Final
04/21/25 Unknown Anaerobic Culture - Final
Foot - Left NO ANAEROBES ISOLATED
04/18/25 21:59 Blood Culture - Final
Blood/Venous No Growth - Final Report
04/18/25 21:59 Blood Culture - Final
Blood/Venous No Growth - Final Report
04/18/25 20:00 Urine Culture - Final
Urine S aureus-Methicillin Sensitive
04/25/25 Lumbar MRI wo and w contrast:
1. SEVERE SEPTIC ARTHRITIS of the RIGHT L3/L4 FACET JOINT.
2. Anterior EPIDURAL ABSCESSES posterior to the L3 and L4 vertebral bodies.
3. 15.0 cm in length tubular ABSCESS in the right psoas muscle.
4. 7.5 cm in length tubular ABSCESS in the right posterior paraspinal muscles.
5. Severe myositis in the right psoas and right posterior paraspinal muscle surrounding the abscesses.
6. SEVERE CENTRAL CANAL STENOSIS and severe right neural foraminal narrowing at L3/L4.
7. Moderate central canal stenosis at L2/L3 and L4/L5.
8. Severe left-sided facet joint arthrosis at L4/L5.
04/20/25 LLE MRI wo contrast: First distal digit cellulitis with osteomyelitis. Probable superimposed pathologic fracture. Interphalangeal joint effusion, suspicious for septic arthritis, as well as fluid distention along the first extensor tendon
sheath, raising the possibility of infectious tenosynovitis. Low level bone marrow edema is noted within the head of the first proximal phalanx, which may be reactive in nature. Mild/early osteomyelitis cannot be entirely excluded.
04/20/25 Lumbar MRI: No evidence to suggest discitis or osteomyelitis. No epidural collection to suggest epidural abscess. Intramuscular and fascial edema associated with the right psoas muscle and posterior right paraspinal musculature. Most likely
muscle strain/partial tear. See full dictated report.
04/19/25 Foot XRAY: Lucency suggesting cortical bony destructive process involving at least the distal aspect of the distal phalanx of the left great toe,a suspicious for infection/osteomyelitis.
Care Review
Plan reviewed with: Physician (Dr. Pratt)
[2025-04-26 11:26] LABS: Glucose - Point of Care 144 mg/dl (70-99)
[2025-04-26 12:31] VITALS: BP 129/67; PULSE 64
--- NOTE | 2025-04-26 14:30 | W.PN.HOSP.TC ---
Today's Communication/Plan
-
Pending neurosurgery evaluation.
Consult interventional radiology with tentative plan for right psoas muscle drain.
IV antibiotics
Assessment / Plan
Assessment / Plan
Impression
Left hallux cellulitis/osteomyelitis
Septic arthritis of the right L3-L4 facet joint.
Epidural abscesses posterior to the L3-L4 vertebral bodies.
Right psoas muscle abscess.
Right posterior paraspinal muscle abscesses.
Severe myositis of her right psoas and right posterior paraspinal muscle surrounding the abscesses
Sepsis present on admission now resolved
MSSA bacteriuria without evidence of UTI
Persistent leukocytosis
Resistant lower back/right flank pain.
Elevated inflammatory markers.
CARLENE resolved
Other conditions
NIDDM.
Essential hypertension
Dyslipidemia.
Depression.
Plan:
Left hallux cellulitis with osteomyelitis confirmed with MRI consistent with osteomyelitis, septic arthritis and pathological fracture.
Status post toe amputation on 04/21.
Intraoperative culture with MSSA
Blood cultures negative to date
Path pending.
Antibiotics narrowed to cefazolin.
Persistent lower back/right flank pain.
MRI of the lumbar spine without contrast with multilevel DJD, right psoas muscle strain, nonspecific pain
Noted with persistent leukocytosis despite full source control.
Also concern with MSSA bacteriuria (likely secondary seeding)
Mildly elevated inflammatory markers
Repeated MRI with and without IV contrast on 04/25 with severe septic arthritis of the right L3-L4 facet joint, epidural abscesses posterior to L3, L4 vertebral bodies, 15 cm in length tubular abscess in the right psoas muscle, 7.5 cm in length
tubular abscess in the right posterior paraspinal muscles, severe myositis in the right psoas and the right posterior paraspinal muscles surrounding the abscesses.
Neurosurgery evaluation.
If no neurosurgical intervention planned, would consider [facility] consultation for abscess drain
Continue IV antibiotics as per ID
Echocardiogram with preserved biventricular function and no valvular abnormalities
Mild CARLENE creatinine improved 1.3�0.7
Diabetes mellitus
Hemoglobin A1c 7.9
Insulin sliding scale
Hold metformin acutely.
Essential hypertension.
Continue lisinopril monitor renal function
Hold HCTZ acutely
Anticipated Discharge: > 48 hours
Subjective/Interval History
-
Date of Service: April 26, 2025
Objective Data
-
Labs:
Laboratory Results
04/26/25
06:35
WBC 12.3 H
Hgb 11.0 L
Hct 33.4 L
Plt Count 248
Sodium 136
Potassium 4.9
Chloride 104
Carbon Dioxide 28
BUN 13
Creatinine 0.8
Glucose 179 H
Calcium 8.3 L
Vital Signs:
Vital Signs
Temp Pulse Resp BP Pulse Ox
98.7 F 52 14 143/68 98
04/26/25 08:09 04/26/25 08:09 04/26/25 08:09 04/26/25 08:09 04/26/25 08:09
I&O
04/25/25 04/26/25 04/27/25
06:59 06:59 06:59
Intake Total 1320 / 1320 1580 / 1580
Output Total 1150 / 1150 1725 / 1725
Balance 170 / 170 -145 / -145
Physical Exam
-
General: Well Developed
HEENT: Normocephalic, Atraumatic, Moist Mucous Membranes, No Ptosis, PERRLA and Nose Appears Normal
Respiratory: Clear to Auscultation and Non Labored Respirations
Cardiac: Regular Rhythm and S1/S2
Breast: Deferred by me
GI: Soft, Nontender, Nondistended and Normal Bowel Sounds
Genito-urinary: No Costovertebral Tender
Musculoskeletal: No Clubbing and Other (dressing left big toe)
Skin: Warm
Neuro: Awake, Alert, Oriented, AO x 3 and No Motor Deficits
Psych: Calm and Confused
[2025-04-26] MEDS: TYLENOL 650 MG PO (14:39)
--- NOTE | 2025-04-26 15:19 | CM ---
Reviewed the chart notes and spoke with the patient and son at the bedside. Per notes, consult interventional radiology with tentative plan for right psoas muscle drain. Per ID note, continue cefazolin, anticipate 8 weeks. CM continues to be
available to patient/family and is monitoring medical plan for needs at discharge.
Plan: Discharge to SNF/rehab once medically stable and bed secured (hoping for [facility]).
[2025-04-26 16:49] VITALS: BP 137/64
[2025-04-26 17:21] LABS: Glucose - Point of Care 134 mg/dl (70-99)
[2025-04-26] MEDS: NOVOLOG FLEXPEN-LOW RESISTANCE SC (17:28)
--- NOTE | 2025-04-26 17:50 | CON.NS ---
Consultation
-
Date/Time Consultation Performed: 17:50; 04/26/2025
Performing Provider: Cristal
Chief Complaint
History of Present Illness
This is a neurosurgical consultation on a 75-year-old male that presented on 04/18/2025 with low back pain, and radiation to the thighs, hip pain, nausea, diarrhea, fatigue.
He was treated for MSSA bacteriuria, as well as left hallux cellulitis/osteomyelitis, status post amputation on 04/23/2025. Patient continued to have ongoing right-sided lower lumbar pain, and and had a noncontrast MRI that demonstrated no obvious
evidence of osteodiscitis. There was noted to be significant abnormalities within the right psoas muscle, paraspinal muscle. Patient underwent a repeat MRI scan.
This ultimately demonstrated contrast enhancement with a ventral epidural abscess as well as a 15 cm right psoas abscess, as well as a right 7.5 cm paraspinal muscle abscess.
Infectious disease has been monitoring the patient and patient continues on Ancef 2 g IV every 8 hours.
ESR 84. CRP 62.4
Patient seen and examined. Son is at bedside. Patient has history of diabetes, diagnosed approximate 6 years ago. Son admits that patient has not been checking his sugars frequently.
He did recently undergo several cortisone ejections to his right knee.
Patient reports that his pain is predominantly mechanical in nature with pain in the right groin, with radiation to the proximal upper right thigh, and is present predominantly with hip flexion. Denies any numbness, tingling, or weakness in the
lower extremities. Was able to mobilize out of bed to the chair today, and ambulates small distances with a walker, per the son.
Review of Systems
-
10 point review of systems including constitutional, ENT, cardiovascular, respiratory, GI, , neurologic, oncologic, hematologic, musculoskeletal was performed, and was negative except for as stated in HPI.
Medication and Allergies
Home Medications
Home Medications
�Medication �Instructions �Recorded
aspirin 81 mg tablet,delayed 81 mg PO DAILY Blood Clot 04/18/25
release Prevention/Tx
escitalopram oxalate 10 mg tablet 10 mg PO DAILY Mental 04/18/25
(Lexapro) Health/Anxiety
lisinopril 20 1 tab PO BID Blood Pressure 04/18/25
mg-hydrochlorothiazide 12.5 mg
tablet
metformin 500 mg tablet,extended 2,000 mg PO QPM Diabetes 04/18/25
release 24 hr
methylprednisolone 4 mg tablets in 0 mg PO PER PKG DIR 04/18/25
a dose pack (Medrol ([place])) Anti-Inflammatory
naproxen sodium 220 mg tablet 440 mg PO BID Pain 04/18/25
(Aleve)
omega 7-joa-swr-fish oil 60 mg-90 1 cap PO DAILY 04/18/25
mg-500 mg capsule (Fish Oil)
simvastatin 40 mg tablet (Zocor) 40 mg PO DAILY High Cholesterol 04/18/25
therapeutic multivitamin 1 tab PO DAILY Supplement 04/18/25
oxycodone-acetaminophen 5 mg-325 1 tab PO Q4HPRN PRN moderate pain 04/23/25
mg tablet #7 tabs
Allergies
Allergies
Allergy/AdvReac Type Severity Reaction Status Date / Time
No Known Allergies Allergy Verified 04/18/25 15:39
Physical Exam
-
Exam:
Awake, alert, no apparent distress.
Cranial nerves II to XII gross intact.
Motor: 5/5 strength bilaterally in upper extremities with no evidence of pronator drift.
5/5 strength bilaterally in the lower extremities in all muscle groups, specifically in hip flexion, knee extension. Left foot dorsiflexion is limited predominantly to cast from toe amputation.
Significant elicitation of pain upon passive hip flexion on the right
MRI of the lumbar spine without contrast performed on 04/25/2025 was reviewed. There appears to be epidural contrast enhancement predominantly centered around L3-L4
With right sided paracentral epidural abscess/enhancement. This extends over the vertebral bodies of L3, L4 ventrally. Additionally, there is large amounts of tubular rim-enhancing fluid collections extending from the right facet joint, into the
muscles. There is a 2.1 x 2.0 x 15 cm collection within the right psoas muscle which also appears to have internal septations/loculations. Additionally, there appears to be a right posterior paraspinal 7.5 cm in craniocaudal abscess with
surrounding infectious myositis.
Problems
-
Problem Status Onset Code
Dehydration Acute E86.0
Hip pain, right Acute M25.551
Pyelonephritis Acute N12
Assessment / Plan
-
This is a 75-year-old gentleman who presented with back pain, and ultimately was found to have MSSA bacteremia, left toe osteomyelitis, status post toe amputation.
He has been initiated on IV cefazolin. ESR, CRP were elevated. Due to persistent back pain, MRI with contrast was performed, which ultimately revealed right L3-L4 facet joint infection, with extension into tubular rim-enhancing, likely loculated
fluid collections extending from the right facet joint into the paraspinal muscles, and into the psoas muscle.
Patient has been initiated on IV antibiotics given multifocal infection with likely presumed bacteremia at some point with multiple areas of seeding of infection.
His pain is predominantly mechanical, and focal in nature focused over the right hip, and worsens with hip flexion. I believe this is likely secondary to the myositis associated with the psoas abscesses.
While the patient does have severe central canal stenosis at L3-L4, his symptomatology is predominantly centered in and around the right groin. He does not have any weakness, numbness, tingling in the lower extremities.
Given this, recommend IR guided drainage of the psoas abscesses and posterior paraspinal muscles. Continue to follow the patient neurologically and continue with IV antibiotics. Trend ESR and CRP.
If the patient does not respond to IV antibiotics and continues to have persistent symptoms or worsening of symptoms despite IR drainage, an IV antibiotic treatment, then can proceed with lumbar laminectomy for washout.
Would recommend follow-up MRI in approximately 4 to 6 weeks as long as CRP and ESR continue to trend downward.
Son also expressed the patient has had some word finding difficulties and cognitive decline. Given this, will order noncontrast CT scan of the head.
[2025-04-26] MEDS: MIRALAX 17 GRAMS PO (19:35)
[2025-04-26 21:25] LABS: Glucose - Point of Care 202 mg/dl (70-99)
[2025-04-26 23:00] VITALS: BP 131/61
[2025-04-27 00:03] LABS: Glucose - Point of Care 166 mg/dl (70-99)
[2025-04-27] MEDS: ANCEF 10 IV ×3 (06:00→22:29)
[2025-04-27 06:37] LABS: Glucose - Point of Care 185 mg/dl (70-99)
[2025-04-27 07:51] VITALS: BP 140/66
[2025-04-27] MEDS: LIPITOR 20 MG PO (08:24)
[2025-04-27] MEDS: LEXAPRO 10 MG PO (08:24)
[2025-04-27] MEDS: ZESTRIL 20 MG PO ×2 (08:24→19:59)
[2025-04-27] MEDS: ASPIR LOW (ENTERIC COATED) 81 MG PO (08:24)
[2025-04-27] MEDS: PERCOCET 5/325 1 TABLET PO ×3 (08:34→21:20)
[2025-04-27] MEDS: NOVOLOG FLEXPEN-LOW RESISTANCE SC ×3 (08:36→18:42)
--- NOTE | 2025-04-27 10:40 | W.PN.ID1 ---
Date of Service
Date of Service: April 27, 2025
Today's Communication
For IR drainage.
Continue cefazolin.
Assessment / Plan
# Right psoas muscle abscess
# L3-L4 discitis and anterior epidural abscess
# Left hallux cellulitis/osteo
. 04/21 s/p toe amp.
. cx MSSA
. Path pending
# MSSA bacteruria
. asymptomatic
# Leukocytosis trending down
# Hx DM with neuropathy
- Suspect toe osteo as source of lumbar abscesses via transient bacteremia. Suspect MSSA as from toe and urine.
- Blood cx's x2 negative
- 04/20 MRI L spine wo contrast report: 'no discitis/osteo/abscess'. + right psoas muscle and paraspinal muscle strain vs partial tear
- 04/25 MRI L spine wo and with contrast report: septic arthritis L3/L4 with anterior epidural abscess (1.9cm), 15 cm R psoas abscess, 7.5 cm R paraspinal muscle abscess
- TTE no vege
-For IR drainage of abscesses. Send cx
- Neurosurgery evaluation - no emergent need for surgical intervention.
- Continue cefazolin 2g IV q8h (d8). Anticipate 8 or more weeks of IV abx.
- Trend CRP/ESR weekly.
# Additional Past Medical History:
Diabetes mellitus
Neuropathy
Hypertension
Dyslipidemia
Depression
Chief Complaint
-: Cellulitis and Other (back pain)
Subjective / Review of Systems
Unable to sleep last night due to noise from roommate.
Back pain improves in supine position.
Vital Signs / Physical Exam
Vital Signs
Vital Signs
Temp Pulse Resp BP Pulse Ox
98.8 F 54 14 140/66 98
04/27/25 07:51 04/27/25 07:51 04/27/25 07:51 04/27/25 07:51 04/27/25 07:51
Physical Exam
Constitutional: No Acute Distress and Comfortable
Cardiovascular: Regular Rate and S1/S2
Pulmonary: Clear
Gastrointestinal: Soft, Non Tender and Non Distended
Extremities: Negative Edema
Neurological: Awake and Alert
Objective Data
Lab Data
Lab Results
04/26/25 06:35
04/26/25 06:35
ESR 84 mm/hour (0-20) H 04/25/25 14:46
Estimated Creat Clear 88 ml/min 04/26/25 06:35
Lactic Acid 2.6 mmol/L (0.7-2.0) H 04/18/25 19:54
Total Bilirubin 0.5 mg/dl (0.2-1.3) 04/19/25 05:15
AST 12 U/L (17-59) L 04/19/25 05:15
ALT 13 U/L (0-50) 04/19/25 05:15
Alkaline Phosphatase 73 U/L (38-126) 04/19/25 05:15
C-Reactive Protein 62.40 mg/L (0.0-10.00) H 04/25/25 14:45
Most recent labs reviewed.
Micro Results:
04/21/25 Unknown Wound Culture - Final
Foot - Left S aureus-Methicillin Sensitive
Gram Stain - Final
04/21/25 Unknown Anaerobic Culture - Final
Foot - Left NO ANAEROBES ISOLATED
04/18/25 21:59 Blood Culture - Final
Blood/Venous No Growth - Final Report
04/18/25 21:59 Blood Culture - Final
Blood/Venous No Growth - Final Report
04/18/25 20:00 Urine Culture - Final
Urine S aureus-Methicillin Sensitive
04/25/25 Lumbar MRI wo and w contrast:
1. SEVERE SEPTIC ARTHRITIS of the RIGHT L3/L4 FACET JOINT.
2. Anterior EPIDURAL ABSCESSES posterior to the L3 and L4 vertebral bodies.
3. 15.0 cm in length tubular ABSCESS in the right psoas muscle.
4. 7.5 cm in length tubular ABSCESS in the right posterior paraspinal muscles.
5. Severe myositis in the right psoas and right posterior paraspinal muscle surrounding the abscesses.
6. SEVERE CENTRAL CANAL STENOSIS and severe right neural foraminal narrowing at L3/L4.
7. Moderate central canal stenosis at L2/L3 and L4/L5.
8. Severe left-sided facet joint arthrosis at L4/L5.
04/20/25 LLE MRI wo contrast: First distal digit cellulitis with osteomyelitis. Probable superimposed pathologic fracture. Interphalangeal joint effusion, suspicious for septic arthritis, as well as fluid distention along the first extensor tendon
sheath, raising the possibility of infectious tenosynovitis. Low level bone marrow edema is noted within the head of the first proximal phalanx, which may be reactive in nature. Mild/early osteomyelitis cannot be entirely excluded.
04/20/25 Lumbar MRI: No evidence to suggest discitis or osteomyelitis. No epidural collection to suggest epidural abscess. Intramuscular and fascial edema associated with the right psoas muscle and posterior right paraspinal musculature. Most likely
muscle strain/partial tear. See full dictated report.
04/19/25 Foot XRAY: Lucency suggesting cortical bony destructive process involving at least the distal aspect of the distal phalanx of the left great toe,a suspicious for infection/osteomyelitis.
[2025-04-27 12:15] LABS: Glucose - Point of Care 128 mg/dl (70-99)
--- NOTE | 2025-04-27 13:22 | CM ---
Patient seen at bedside
per ID - Continue cefazolin 2g IV q8h (d8). Anticipate 8 or more weeks of IV abx.
Referrals in [facility]-updated
PLAN: SNF, pending bed availability, anticipate IV antibiotic when stable
--- NOTE | 2025-04-27 14:59 | W.PN.HOSP.TC ---
Today's Communication/Plan
-
To interventional radiology for CT-guided drainage of psoas abscess.
IV antibiotics
Assessment / Plan
Assessment / Plan
Impression
Left hallux cellulitis/osteomyelitis
Septic arthritis of the right L3-L4 facet joint.
Epidural abscesses posterior to the L3-L4 vertebral bodies.
Right psoas muscle abscess.
Right posterior paraspinal muscle abscesses.
Severe myositis of her right psoas and right posterior paraspinal muscle surrounding the abscesses
Sepsis present on admission now resolved
MSSA bacteriuria without evidence of UTI
Persistent leukocytosis
Resistant lower back/right flank pain.
Elevated inflammatory markers.
CARLENE resolved
Other conditions
NIDDM.
Essential hypertension
Dyslipidemia.
Depression.
Plan:
Left hallux cellulitis with osteomyelitis confirmed with MRI consistent with osteomyelitis, septic arthritis and pathological fracture.
Status post toe amputation on 04/21.
Intraoperative culture with MSSA
Blood cultures negative to date
Path pending.
Antibiotics narrowed to cefazolin.
Persistent lower back/right flank pain.
MRI of the lumbar spine without contrast with multilevel DJD, right psoas muscle strain, nonspecific pain
Noted with persistent leukocytosis despite full source control.
Also concern with MSSA bacteriuria (likely secondary seeding)
Mildly elevated inflammatory markers
Repeated MRI with and without IV contrast on 04/25 with severe septic arthritis of the right L3-L4 facet joint, epidural abscesses posterior to L3, L4 vertebral bodies, 15 cm in length tubular abscess in the right psoas muscle, 7.5 cm in length
tubular abscess in the right posterior paraspinal muscles, severe myositis in the right psoas and the right posterior paraspinal muscles surrounding the abscesses.
Neurosurgery evaluation.
If no neurosurgical intervention planned, would consider [facility] consultation for abscess drain
Continue IV antibiotics as per ID
Echocardiogram with preserved biventricular function and no valvular abnormalities
Mild CARLENE creatinine improved 1.3�0.7
Concern expressed with word-finding difficulties since admission to the hospital
Neurologic exam with no focal findings particularly without aphasia
CT scan of the head with no acute abnormalities
Suspect transient TME in the settings of acute illness including infection, CARLENE.
Will continue monitoring
Diabetes mellitus
Hemoglobin A1c 7.9
Insulin sliding scale
Hold metformin acutely.
Essential hypertension.
Continue lisinopril monitor renal function
Hold HCTZ acutely
Anticipated Discharge: > 48 hours
Subjective/Interval History
-
Date of Service: April 27, 2025
Objective Data
-
Vital Signs:
Vital Signs
Temp Pulse Resp BP Pulse Ox
98.8 F 54 14 140/66 98
04/27/25 07:51 04/27/25 07:51 04/27/25 07:51 04/27/25 07:51 04/27/25 07:51
I&O
04/26/25 04/27/25 04/28/25
06:59 06:59 06:59
Intake Total 1580 / 1580 720 / 720
Output Total 1725 / 1725 1350 / 1350
Balance -145 / -145 -630 / -630
Physical Exam
-
General: Well Developed
HEENT: Normocephalic, Atraumatic, Moist Mucous Membranes, No Ptosis, PERRLA and Nose Appears Normal
Respiratory: Clear to Auscultation and Non Labored Respirations
Cardiac: Regular Rhythm and S1/S2
Breast: Deferred by me
GI: Soft, Nontender, Nondistended and Normal Bowel Sounds
Genito-urinary: No Costovertebral Tender
Musculoskeletal: No Clubbing and Other (dressing left big toe)
Skin: Warm
Neuro: Awake, Alert, Oriented, AO x 3 and No Motor Deficits
Psych: Calm and Confused
[2025-04-27 15:42] VITALS: BP 136/71; BP_SYST 59
[2025-04-27 18:01] VITALS: BP 111/64
[2025-04-27 18:42] VITALS: BP 139/62
[2025-04-27 18:42] LABS: Glucose - Point of Care 120 mg/dl (70-99)
[2025-04-27 21:35] LABS: Glucose - Point of Care 232 mg/dl (70-99)
[2025-04-27 23:00] VITALS: BP 128/61
[2025-04-28] MEDS: ANCEF 10 IV ×3 (05:48→21:47)
[2025-04-28 06:00] VITALS: BMI 23.1
[2025-04-28 06:04] LABS: Hematocrit 34.6 % (39.0-52.0); Hemoglobin 11.2 g/dL (13.0-18.0); Mean Corp Hgb Conc. 32.4 g/dL (33.0-37.0); Mean Corpuscular Volume 92.3 fL (80.0-94.0); Nucleated Red Blood Cells % 0 % (-); Platelet Count 276 10^3/uL (130-400); Red Cell Dist. Width 14.1 % (11.5-14.5)
[2025-04-28 06:35] LABS: Blood Urea Nitrogen 17 mg/dl (9-20); Calcium 8.7 mg/dl (8.4-10.2); Carbon Dioxide 25 mmol/L (22-30); Chloride 104 mmol/L (98-107); Estimated Creatinine Clearance 88 ml/min; Glucose 173 mg/dl (70-99); Potassium 4.4 mmol/L (3.5-5.1); Sodium 136 mmol/L (135-145); eGFR > 60.00
[2025-04-28 07:25] VITALS: BP 140/63
[2025-04-28] MEDS: ASPIR LOW (ENTERIC COATED) 81 MG PO (08:05)
[2025-04-28] MEDS: LEXAPRO 10 MG PO (08:06)
[2025-04-28] MEDS: PERCOCET 5/325 1 TABLET PO ×4 (08:06→20:43)
[2025-04-28] MEDS: LIPITOR 20 MG PO (08:07)
[2025-04-28] MEDS: ZESTRIL 20 MG PO ×2 (08:07→20:31)
[2025-04-28 08:36] LABS: Glucose - Point of Care 169 mg/dl (70-99)
[2025-04-28] MEDS: NOVOLOG FLEXPEN-LOW RESISTANCE 1 UNITS SC ×3 (09:02→18:50)
--- NOTE | 2025-04-28 10:46 | W.PN.ID1 ---
Date of Service
Date of Service: April 28, 2025
Today's Communication
Continue cefazolin.
Place PICC
Assessment / Plan
# Right psoas muscle abscess
# L3-L4 discitis and anterior epidural abscess
# Left hallux cellulitis/osteo
. 04/21 s/p toe amp.
. cx MSSA
. Path pending
# MSSA bacteruria
. asymptomatic
# Leukocytosis resolved
# Hx DM with neuropathy
- Suspect toe osteo as source of lumbar abscesses via transient bacteremia.
- Blood cx's x2 negative
- 04/20 MRI L spine wo contrast report: 'no discitis/osteo/abscess'. + right psoas muscle and paraspinal muscle strain vs partial tear
- 04/25 MRI L spine wo and with contrast report: septic arthritis L3/L4 with anterior epidural abscess (1.9cm), 15 cm R psoas abscess, 7.5 cm R paraspinal muscle abscess
- TTE no vege
- Neurosurgery evaluation - no emergent need for surgical intervention.
-04/27 IR aspiration of R paraspinal fluid cloudy hemorrhagic fluid; IR drain placement of R psoas fluid purulent appearing hemorrhagic fluid
Cx's pending. Gram stains GPC
- Continue cefazolin 2g IV q8h (d9)through 06/14/25
- Trend CRP/ESR weekly.
- Place PICC.
# Additional Past Medical History:
Diabetes mellitus
Neuropathy
Hypertension
Dyslipidemia
Depression
Chief Complaint
-: Cellulitis and Other (back pain)
Subjective / Review of Systems
Slept better last night.
Vital Signs / Physical Exam
Vital Signs
Vital Signs
Temp Pulse Resp BP Pulse Ox
97.7 F 55 17 140/63 98
04/28/25 07:25 04/28/25 08:07 04/28/25 07:25 04/28/25 08:07 04/28/25 07:25
Physical Exam
Constitutional: No Acute Distress and Comfortable
Cardiovascular: Regular Rate and S1/S2
Pulmonary: Clear
Gastrointestinal: Soft, Non Tender and Non Distended
Extremities: Negative Edema
Musculoskeletal: Other (right KENNEDY drain with serosanguinous fluid)
Neurological: Awake and Alert
Objective Data
Lab Data
Lab Results
04/28/25 05:36
04/28/25 05:36
ESR 84 mm/hour (0-20) H 04/25/25 14:46
Estimated Creat Clear 88 ml/min 04/28/25 05:36
Lactic Acid 2.6 mmol/L (0.7-2.0) H 04/18/25 19:54
Total Bilirubin 0.5 mg/dl (0.2-1.3) 04/19/25 05:15
AST 12 U/L (17-59) L 04/19/25 05:15
ALT 13 U/L (0-50) 04/19/25 05:15
Alkaline Phosphatase 73 U/L (38-126) 04/19/25 05:15
C-Reactive Protein 62.40 mg/L (0.0-10.00) H 04/25/25 14:45
Most recent labs reviewed.
Micro Results:
04/27/25 17:55 Wound Culture - Pending
Abscess Gram Stain - Preliminary
04/27/25 09:00 Wound Culture - Pending
Muscle Gram Stain - Preliminary
04/21/25 Unknown Wound Culture - Final
Foot - Left S aureus-Methicillin Sensitive
Gram Stain - Final
04/21/25 Unknown Anaerobic Culture - Final
Foot - Left NO ANAEROBES ISOLATED
04/18/25 21:59 Blood Culture - Final
Blood/Venous No Growth - Final Report
04/18/25 21:59 Blood Culture - Final
Blood/Venous No Growth - Final Report
04/18/25 20:00 Urine Culture - Final
Urine S aureus-Methicillin Sensitive
04/25/25 Lumbar MRI wo and w contrast:
1. SEVERE SEPTIC ARTHRITIS of the RIGHT L3/L4 FACET JOINT.
2. Anterior EPIDURAL ABSCESSES posterior to the L3 and L4 vertebral bodies.
3. 15.0 cm in length tubular ABSCESS in the right psoas muscle.
4. 7.5 cm in length tubular ABSCESS in the right posterior paraspinal muscles.
5. Severe myositis in the right psoas and right posterior paraspinal muscle surrounding the abscesses.
6. SEVERE CENTRAL CANAL STENOSIS and severe right neural foraminal narrowing at L3/L4.
7. Moderate central canal stenosis at L2/L3 and L4/L5.
8. Severe left-sided facet joint arthrosis at L4/L5.
04/20/25 LLE MRI wo contrast: First distal digit cellulitis with osteomyelitis. Probable superimposed pathologic fracture. Interphalangeal joint effusion, suspicious for septic arthritis, as well as fluid distention along the first extensor tendon
sheath, raising the possibility of infectious tenosynovitis. Low level bone marrow edema is noted within the head of the first proximal phalanx, which may be reactive in nature. Mild/early osteomyelitis cannot be entirely excluded.
04/20/25 Lumbar MRI: No evidence to suggest discitis or osteomyelitis. No epidural collection to suggest epidural abscess. Intramuscular and fascial edema associated with the right psoas muscle and posterior right paraspinal musculature. Most likely
muscle strain/partial tear. See full dictated report.
04/19/25 Foot XRAY: Lucency suggesting cortical bony destructive process involving at least the distal aspect of the distal phalanx of the left great toe,a suspicious for infection/osteomyelitis.
[2025-04-28 11:54] LABS: Glucose - Point of Care 195 mg/dl (70-99)
[2025-04-28] MEDS: SENOKOT-S 1 TABLET PO (12:13)
[2025-04-28 12:51] VITALS: BP 116/58; PULSE 68
--- NOTE | 2025-04-28 13:45 | W.PN.HOSP.TC ---
Today's Communication/Plan
-
Monitor output via KENNEDY drain.
PICC line
IV antibiotic
PT assessment
SNF placement
Foot wound care
Assessment / Plan
Assessment / Plan
Impression
Left hallux cellulitis/osteomyelitis
Septic arthritis of the right L3-L4 facet joint.
Epidural abscesses posterior to the L3-L4 vertebral bodies.
Right psoas muscle abscess.
Right posterior paraspinal muscle abscesses.
Severe myositis of her right psoas and right posterior paraspinal muscle surrounding the abscesses
Sepsis present on admission now resolved
MSSA bacteriuria without evidence of UTI
Persistent leukocytosis
Resistant lower back/right flank pain.
Elevated inflammatory markers.
CARLENE resolved
Other conditions
NIDDM.
Essential hypertension
Dyslipidemia.
Depression.
Plan:
Left hallux cellulitis with osteomyelitis confirmed with MRI consistent with osteomyelitis, septic arthritis and pathological fracture.
Status post toe amputation on 04/21.
Intraoperative culture with MSSA
Blood cultures negative to date
Path pending.
Antibiotics narrowed to cefazolin.
Persistent lower back/right flank pain.
MRI of the lumbar spine without contrast with multilevel DJD, right psoas muscle strain, nonspecific pain
Noted with persistent leukocytosis despite full source control.
Also concern with MSSA bacteriuria (likely secondary seeding)
Mildly elevated inflammatory markers
Repeated MRI with and without IV contrast on 04/25 with severe septic arthritis of the right L3-L4 facet joint, epidural abscesses posterior to L3, L4 vertebral bodies, 15 cm in length tubular abscess in the right psoas muscle, 7.5 cm in length
tubular abscess in the right posterior paraspinal muscles, severe myositis in the right psoas and the right posterior paraspinal muscles surrounding the abscesses.
Neurosurgery evaluation appreciated. With no focal neurologic symptoms plan is to continue conservative management with IV antibiotics and percutaneous abscess drain
Echocardiogram with preserved biventricular function and no valvular abnormalities
Status post interventional radiology percutaneous drain over right psoas and right paraspinal abscess. KENNEDY drain in place.
Continue IV antibiotics as per ID
PICC line
Mild CARLENE improved creatinine improved 1.3�0.7
Concern expressed with word-finding difficulties since admission to the hospital
Neurologic exam with no focal findings particularly without aphasia
CT scan of the head with no acute abnormalities
Suspect transient TME in the settings of acute illness including infection, CARLENE.
Will continue monitoring
Diabetes mellitus
Hemoglobin A1c 7.9
Insulin sliding scale
Hold metformin acutely.
Essential hypertension.
Continue lisinopril monitor renal function
Hold HCTZ acutely
Anticipated Discharge: 24 - 48 hours
Subjective/Interval History
-
Date of Service: April 28, 2025
Objective Data
-
Labs:
Laboratory Results
04/28/25
05:36
WBC 9.7
Hgb 11.2 L
Hct 34.6 L
Plt Count 276
Sodium 136
Potassium 4.4
Chloride 104
Carbon Dioxide 25
BUN 17
Creatinine 0.8
Glucose 173 H
Calcium 8.7
Vital Signs:
Vital Signs
Temp Pulse Resp BP Pulse Ox
97.7 F 55 17 140/63 98
04/28/25 07:25 04/28/25 08:07 04/28/25 07:25 04/28/25 08:07 04/28/25 07:25
I&O
04/27/25 04/28/25 04/29/25
06:59 06:59 06:59
Intake Total 720 / 720 5 / 5
Output Total 1350 / 1350 600 / 600 685 / 685
Balance -630 / -630 -595 / -595 -685 / -685
Physical Exam
-
General: Well Developed
HEENT: Normocephalic, Atraumatic, Moist Mucous Membranes, No Ptosis, PERRLA and Nose Appears Normal
Respiratory: Clear to Auscultation and Non Labored Respirations
Cardiac: Regular Rhythm and S1/S2
Breast: Deferred by me
GI: Soft, Nontender, Nondistended and Normal Bowel Sounds
Genito-urinary: No Costovertebral Tender
Musculoskeletal: No Clubbing and Other (dressing left big toe)
Skin: Warm
Neuro: Awake, Alert, Oriented, AO x 3 and No Motor Deficits
Psych: Calm and Confused
--- NOTE | 2025-04-28 14:24 | PN.CDI ---
CDI
- -
CDI:
Physician Documentation Request
Admit Date: 04/18/25 22:14
Dear Doctor Terence,
Patient admitted for sepsis.
04/27 Hospitalist PN: 'Left hallux cellulitis with osteomyelitis confirmed with MRI consistent with osteomyelitis, septic arthritis and pathological fracture.'
Clarify which of the following accurately represents the acuity of the osteomyelitis. Possible options might include:
____ Acute
Chronic
____ Other
Use of terms such as suspected, likely, concern for, or probable (associated with a specific diagnosis that is being evaluated, monitored, or treated as if it exists) are acceptable and can be coded in the inpatient setting, when documented at the
time of discharge.
Thank you,
Daly Ashraf RN, BSN
CDI Specialist
Available via [place] text
Please use your independent medical judgment in providing your response.
[2025-04-28 15:16] VITALS: BP 116/58; PULSE 68
[2025-04-28 15:29] VITALS: BP 104/67
--- NOTE | 2025-04-28 16:15 | WOUNDNOTE ---
[facility] RN NOTE: Reviewed chart and met with patient and son. Patient is s/p left hallux amputation with primary closure by Dr. Mejia on 04/23. Post- op dressing intact. This scientific technical writer TT Dr. Mejia for wound care instructions as post-op dressing had
not yet been removed. Podiatry resident ordered wound care and RN Ghislaine will perform. Will sign off.
--- NOTE | 2025-04-28 16:18 | WOUNDNOTE ---
[facility] RN NOTE: Reviewed chart and met with patient. Patient is s/p left hallux amputation with primary closure by Dr. Mejia on 04/23. Post-op dressing still in place from 04/23. This ticket writer TT Dr. Mejia to request wound orders. REBECCA Scanlon to perform
wound care. Will sign off.
[2025-04-28 17:08] LABS: Glucose - Point of Care 172 mg/dl (70-99)
[2025-04-28 20:05] VITALS: BP 120/52
[2025-04-28 21:08] LABS: Glucose - Point of Care 239 mg/dl (70-99)
[2025-04-28 22:55] VITALS: BP 124/50
[2025-04-29] MEDS: ANCEF 10 IV ×3 (05:56→21:46)
[2025-04-29 07:21] VITALS: BP 141/61
[2025-04-29 07:47] LABS: Glucose - Point of Care 180 mg/dl (70-99)
--- NOTE | 2025-04-29 08:34 | W.PN.HOSP.TC ---
Today's Communication/Plan
-
Antibiotics. Discharge planning
Assessment / Plan
Assessment / Plan
Physical exam:
General: Acute on chronically ill
HEENT: Normocephalic, Atraumatic and Moist Mucous Membranes
Respiratory: Clear to Auscultation; Negative Wheezes, Rales or Rhonchi
Cardiac: Regular Rhythm and S1/S2
GI: Soft, Nontender and Nondistended
Musculoskeletal: Foot wrapped up. No Clubbing, No Cyanosis and No Edema
Neuro: Awake, Alert and Oriented, no neurological deficit
Psych: Calm
Impression
Left hallux cellulitis/osteomyelitis
Septic arthritis of the right L3-L4 facet joint.
Epidural abscesses posterior to the L3-L4 vertebral bodies.
Right psoas muscle abscess.
Right posterior paraspinal muscle abscesses.
Severe myositis of her right psoas and right posterior paraspinal muscle surrounding the abscesses
Sepsis present on admission now resolved
MSSA bacteriuria without evidence of UTI
Persistent leukocytosis
Resistant lower back/right flank pain.
Elevated inflammatory markers.
CARLENE resolved
Other conditions
NIDDM.
Essential hypertension
Dyslipidemia.
Depression.
Plan:
Left hallux cellulitis with osteomyelitis confirmed with MRI consistent with osteomyelitis, septic arthritis and pathological fracture.
Status post toe amputation on 04/21.
Intraoperative culture with MSSA
Blood cultures negative to date
Path pending.
Antibiotics narrowed to cefazolin.
Persistent lower back/right flank pain.
MRI of the lumbar spine without contrast with multilevel DJD, right psoas muscle strain, nonspecific pain
Noted with persistent leukocytosis despite full source control.
Also concern with MSSA bacteriuria (likely secondary seeding)
Mildly elevated inflammatory markers
Repeated MRI with and without IV contrast on 04/25 with severe septic arthritis of the right L3-L4 facet joint, epidural abscesses posterior to L3, L4 vertebral bodies, 15 cm in length tubular abscess in the right psoas muscle, 7.5 cm in length
tubular abscess in the right posterior paraspinal muscles, severe myositis in the right psoas and the right posterior paraspinal muscles surrounding the abscesses.
Neurosurgery evaluation appreciated. With no focal neurologic symptoms plan is to continue conservative management with IV antibiotics and percutaneous abscess drain
Echocardiogram with preserved biventricular function and no valvular abnormalities
Status post interventional radiology percutaneous drain over right psoas and right paraspinal abscess. KENNEDY drain in place.
Continue IV antibiotics as per ID
PICC line
Mild CARLENE improved creatinine improved 1.3�0.7
Concern expressed with word-finding difficulties since admission to the hospital
Neurologic exam with no focal findings particularly without aphasia
CT scan of the head with no acute abnormalities
Suspect transient TME in the settings of acute illness including infection, CARLENE.
Will continue monitoring
Diabetes mellitus
Hemoglobin A1c 7.9
Insulin sliding scale
Hold metformin acutely.
Essential hypertension.
Continue lisinopril monitor renal function
Hold HCTZ acutely
Update on 04/29:
Repeat BMP CBC today
Discussed with son over the phone today
Cultures growing Staph aureus from psoas and spinal drain
Continue Percocet as needed and bowel regimen
PICC line in place in right upper extremity
Follow-up ID final recommendation
Case management for discharge disposition
Anticipated Discharge: 24 - 48 hours
Subjective/Interval History
-
Date of Service: April 29, 2025
Patient still having some pain although overall better. Afebrile
Objective Data
-
Vital Signs:
Vital Signs
Temp Pulse Resp BP Pulse Ox
98.6 F 50 17 141/61 97
04/29/25 07:21 04/29/25 07:21 04/29/25 07:21 04/29/25 07:21 04/29/25 07:21
I&O
04/28/25 04/29/25 04/30/25
06:59 06:59 06:59
Intake Total 575 / 575
Output Total 600 / 600 188 / 188
Balance -595 / -595 -1313 / -1313
[2025-04-29] MEDS: LIPITOR 20 MG PO (08:54)
[2025-04-29] MEDS: ASPIR LOW (ENTERIC COATED) 81 MG PO (08:54)
[2025-04-29] MEDS: LEXAPRO 10 MG PO (08:54)
[2025-04-29] MEDS: ZESTRIL 20 MG PO ×2 (08:54→20:44)
[2025-04-29] MEDS: PERCOCET 5/325 1 TABLET PO ×3 (08:55→18:12)
[2025-04-29] MEDS: NOVOLOG FLEXPEN-LOW RESISTANCE 1 UNITS SC ×2 (10:56→18:01)
[2025-04-29 11:12] LABS: Hematocrit 36.0 % (39.0-52.0); Hemoglobin 11.6 g/dL (13.0-18.0); Mean Corp Hgb Conc. 32.2 g/dL (33.0-37.0); Mean Corpuscular Volume 90.9 fL (80.0-94.0); Nucleated Red Blood Cells % 0 % (-); Platelet Count 268 10^3/uL (130-400); Red Cell Dist. Width 14.2 % (11.5-14.5)
[2025-04-29 11:32] LABS: Glucose - Point of Care 171 mg/dl (70-99)
[2025-04-29 11:53] LABS: Blood Urea Nitrogen 18 mg/dl (9-20); Calcium 9.2 mg/dl (8.4-10.2); Carbon Dioxide 25 mmol/L (22-30); Chloride 103 mmol/L (98-107); Estimated Creatinine Clearance 87 ml/min; Glucose 177 mg/dl (70-99); Potassium 4.5 mmol/L (3.5-5.1); Sodium 136 mmol/L (135-145); eGFR > 60.00
[2025-04-29] MEDS: NOVOLOG FLEXPEN-LOW RESISTANCE 300 UNITS SC (13:10)
--- NOTE | 2025-04-29 14:37 | W.PN.ID1 ---
Date of Service
Date of Service: April 29, 2025
Today's Communication
Continue cefazolin.
Assessment / Plan
# Right psoas muscle abscess
# L3-L4 discitis and anterior epidural abscess
# Left hallux cellulitis/osteo
. 04/21 s/p toe amp.
. cx MSSA
. Path pending
# MSSA bacteruria
. asymptomatic
# Leukocytosis resolved
# Hx DM with neuropathy
- Suspect toe osteo as source of lumbar abscesses via transient bacteremia.
- Blood cx's x2 negative
- 04/20 MRI L spine wo contrast report: 'no discitis/osteo/abscess'. + right psoas muscle and paraspinal muscle strain vs partial tear
- 04/25 MRI L spine wo and with contrast report: septic arthritis L3/L4 with anterior epidural abscess (1.9cm), 15 cm R psoas abscess, 7.5 cm R paraspinal muscle abscess
- TTE no vege
- Neurosurgery evaluation - no emergent need for surgical intervention.
-04/27 IR aspiration of R paraspinal fluid cloudy hemorrhagic fluid; IR drain placement of R psoas fluid purulent appearing hemorrhagic fluid
Cx's Staph aureus
- Continue cefazolin 2g IV q8h through 06/14/25
- Follow CBC, CMP,CRP/ESR weekly.
- Picc in place
- Infusion sheet submitted to pillowcase folder for SNF rehab.
# Additional Past Medical History:
Diabetes mellitus
Neuropathy
Hypertension
Dyslipidemia
Depression
Chief Complaint
-: Other (back pain)
Subjective / Review of Systems
Back pain stable
Vital Signs / Physical Exam
Vital Signs
Vital Signs
Temp Pulse Resp BP Pulse Ox
98.6 F 50 17 141/61 97
04/29/25 07:21 04/29/25 07:21 04/29/25 07:21 04/29/25 07:21 04/29/25 07:21
Physical Exam
Constitutional: No Acute Distress and Comfortable
Cardiovascular: Regular Rate and S1/S2
Pulmonary: Clear
Gastrointestinal: Soft, Non Tender and Non Distended
Extremities: Negative Edema
Musculoskeletal: Other (right KENNEDY drain with serosanguinous fluid)
Neurological: Awake and Alert
Lines: PICC (RUE no erythema)
Objective Data
Lab Data
Lab Results
04/29/25 10:52
04/29/25 10:52
ESR 84 mm/hour (0-20) H 04/25/25 14:46
Estimated Creat Clear 87 ml/min 04/29/25 10:52
Lactic Acid 2.6 mmol/L (0.7-2.0) H 04/18/25 19:54
Total Bilirubin 0.5 mg/dl (0.2-1.3) 04/19/25 05:15
AST 12 U/L (17-59) L 04/19/25 05:15
ALT 13 U/L (0-50) 04/19/25 05:15
Alkaline Phosphatase 73 U/L (38-126) 04/19/25 05:15
C-Reactive Protein 62.40 mg/L (0.0-10.00) H 04/25/25 14:45
Most recent labs reviewed.
Micro Results:
04/27/25 17:55 Wound Culture - Preliminary
Abscess Staphylococcus aureus
Gram Stain - Preliminary
04/27/25 09:00 Wound Culture - Preliminary
Muscle Staphylococcus aureus
Gram Stain - Preliminary
04/21/25 Unknown Wound Culture - Final
Foot - Left S aureus-Methicillin Sensitive
Gram Stain - Final
04/21/25 Unknown Anaerobic Culture - Final
Foot - Left NO ANAEROBES ISOLATED
04/18/25 21:59 Blood Culture - Final
Blood/Venous No Growth - Final Report
04/18/25 21:59 Blood Culture - Final
Blood/Venous No Growth - Final Report
04/18/25 20:00 Urine Culture - Final
Urine S aureus-Methicillin Sensitive
04/25/25 Lumbar MRI wo and w contrast:
1. SEVERE SEPTIC ARTHRITIS of the RIGHT L3/L4 FACET JOINT.
2. Anterior EPIDURAL ABSCESSES posterior to the L3 and L4 vertebral bodies.
3. 15.0 cm in length tubular ABSCESS in the right psoas muscle.
4. 7.5 cm in length tubular ABSCESS in the right posterior paraspinal muscles.
5. Severe myositis in the right psoas and right posterior paraspinal muscle surrounding the abscesses.
6. SEVERE CENTRAL CANAL STENOSIS and severe right neural foraminal narrowing at L3/L4.
7. Moderate central canal stenosis at L2/L3 and L4/L5.
8. Severe left-sided facet joint arthrosis at L4/L5.
04/20/25 LLE MRI wo contrast: First distal digit cellulitis with osteomyelitis. Probable superimposed pathologic fracture. Interphalangeal joint effusion, suspicious for septic arthritis, as well as fluid distention along the first extensor tendon
sheath, raising the possibility of infectious tenosynovitis. Low level bone marrow edema is noted within the head of the first proximal phalanx, which may be reactive in nature. Mild/early osteomyelitis cannot be entirely excluded.
04/20/25 Lumbar MRI: No evidence to suggest discitis or osteomyelitis. No epidural collection to suggest epidural abscess. Intramuscular and fascial edema associated with the right psoas muscle and posterior right paraspinal musculature. Most likely
muscle strain/partial tear. See full dictated report.
04/19/25 Foot XRAY: Lucency suggesting cortical bony destructive process involving at least the distal aspect of the distal phalanx of the left great toe,a suspicious for infection/osteomyelitis.
[2025-04-29 15:09] VITALS: BP 137/56; PULSE 59; O2SAT 98
[2025-04-29 15:11] VITALS: BP 137/56
--- NOTE | 2025-04-29 15:18 | CM ---
Addendum entered by Jaja Healy 04/29/25 15:51:
Per Wendy in admissions at [facility] they can accept patient tomorrow after 4pm, patient will need COVID testing completed, counter caser faxed over prescription for IV ABX and PICC information to Wendy at [facility].
[facility]
Report [phone]

Original Note:
revenue cycle manager reviewed patient's chart and reached out to admissions at [facility], patient will need IV Ancef at discharge KENNEDY drains, also needs PT/OT, facility made aware, script on chart.
Plan; Skilled placement at [facility], patient will need COVID testing completed. No Auth required.
[2025-04-29 16:52] LABS: Glucose - Point of Care 165 mg/dl (70-99)
[2025-04-29 19:56] VITALS: BP 109/48
[2025-04-29 21:09] LABS: Glucose - Point of Care 172 mg/dl (70-99)
[2025-04-29] MEDS: TYLENOL 650 MG PO (21:47)
[2025-04-30 00:15] VITALS: BP 119/53
[2025-04-30 05:17] VITALS: BMI 23.8
[2025-04-30] MEDS: ANCEF 10 IV ×2 (06:31→14:33)
[2025-04-30 07:15] VITALS: BP 124/61
[2025-04-30 07:30] LABS: Glucose - Point of Care 160 mg/dl (70-99)
--- NOTE | 2025-04-30 07:40 | W.PN.HOSP.TC ---
Today's Communication/Plan
-
Discharge planning today
Assessment / Plan
Assessment / Plan
Physical exam:
General: No acute distress. Nontoxic
HEENT: Normocephalic, Atraumatic and Moist Mucous Membranes
Respiratory: Clear to Auscultation; Negative Wheezes, Rales or Rhonchi
Cardiac: Regular Rhythm and S1/S2
GI: Soft, Nontender and Nondistended
Musculoskeletal: Foot wrapped up. No Clubbing, No Cyanosis and No Edema
Neuro: Awake, Alert and Oriented, no neurological deficit
Psych: Calm
Impression
Left hallux cellulitis/osteomyelitis
Septic arthritis of the right L3-L4 facet joint.
Epidural abscesses posterior to the L3-L4 vertebral bodies.
Right psoas muscle abscess.
Right posterior paraspinal muscle abscesses.
Severe myositis of her right psoas and right posterior paraspinal muscle surrounding the abscesses
Sepsis present on admission now resolved
MSSA bacteriuria without evidence of UTI
Persistent leukocytosis
Resistant lower back/right flank pain.
Elevated inflammatory markers.
CARLENE resolved
Other conditions
NIDDM.
Essential hypertension
Dyslipidemia.
Depression.
Plan:
Left hallux cellulitis with osteomyelitis confirmed with MRI consistent with osteomyelitis, septic arthritis and pathological fracture.
Status post toe amputation on 04/21.
Intraoperative culture with MSSA
Blood cultures negative to date
Path pending.
Antibiotics narrowed to cefazolin.
Persistent lower back/right flank pain.
MRI of the lumbar spine without contrast with multilevel DJD, right psoas muscle strain, nonspecific pain
Noted with persistent leukocytosis despite full source control.
Also concern with MSSA bacteriuria (likely secondary seeding)
Mildly elevated inflammatory markers
Repeated MRI with and without IV contrast on 04/25 with severe septic arthritis of the right L3-L4 facet joint, epidural abscesses posterior to L3, L4 vertebral bodies, 15 cm in length tubular abscess in the right psoas muscle, 7.5 cm in length
tubular abscess in the right posterior paraspinal muscles, severe myositis in the right psoas and the right posterior paraspinal muscles surrounding the abscesses.
Neurosurgery evaluation appreciated. With no focal neurologic symptoms plan is to continue conservative management with IV antibiotics and percutaneous abscess drain
Echocardiogram with preserved biventricular function and no valvular abnormalities
Status post interventional radiology percutaneous drain over right psoas and right paraspinal abscess. KENNEDY drain in place.
Continue IV antibiotics as per ID
PICC line
Mild CARLENE improved creatinine improved 1.3�0.7
Concern expressed with word-finding difficulties since admission to the hospital
Neurologic exam with no focal findings particularly without aphasia
CT scan of the head with no acute abnormalities
Suspect transient TME in the settings of acute illness including infection, CARLENE.
Will continue monitoring
Diabetes mellitus
Hemoglobin A1c 7.9
Insulin sliding scale
Hold metformin acutely.
Essential hypertension.
Continue lisinopril monitor renal function
Hold HCTZ acutely
Update on 04/29:
Repeat BMP CBC today
Discussed with son over the phone today
Cultures growing Staph aureus from psoas and spinal drain
Continue Percocet as needed and bowel regimen
PICC line in place in right upper extremity
Follow-up ID final recommendation
Case management for discharge disposition
Update on 04/30:
Antibiotics per ID
Discussed with IR and will remove drain since it is only coming out 5 to 10 cc/day
Aggressive bowel regimen
Plan d/c today
Anticipated Discharge: Today
Subjective/Interval History
-
Date of Service: April 30, 2025
No new complaint
Objective Data
-
Labs:
Laboratory Results
04/30/25
06:00
WBC Pending
Hgb Pending
Hct Pending
Plt Count Pending
Sodium Pending
Potassium Pending
Chloride Pending
Carbon Dioxide Pending
BUN Pending
Creatinine Pending
Glucose Pending
Calcium Pending
Vital Signs:
Vital Signs
Temp Pulse Resp BP Pulse Ox
97.4 F 59 17 124/61 96
04/30/25 07:15 04/30/25 07:15 04/30/25 07:15 04/30/25 07:15 04/30/25 07:15
I&O
04/29/25 04/30/25 05/01/25
06:59 06:59 06:59
Intake Total 575 / 575 845 / 845
Output Total 1888 / 1888 1215 / 1215
Balance -1313 / -1313 -370 / -370
[2025-04-30] MEDS: ASPIR LOW (ENTERIC COATED) 81 MG PO (08:41)
[2025-04-30] MEDS: LIPITOR 20 MG PO (08:41)
[2025-04-30] MEDS: LEXAPRO 10 MG PO (08:42)
[2025-04-30] MEDS: ZESTRIL 20 MG PO (08:42)
[2025-04-30 09:12] LABS: Hematocrit 32.7 % (39.0-52.0); Hemoglobin 10.5 g/dL (13.0-18.0); Mean Corp Hgb Conc. 32.1 g/dL (33.0-37.0); Mean Corpuscular Volume 92.6 fL (80.0-94.0); Nucleated Red Blood Cells % 0 % (-); Platelet Count 266 10^3/uL (130-400); Red Cell Dist. Width 14.4 % (11.5-14.5)
[2025-04-30 09:34] LABS: Blood Urea Nitrogen 16 mg/dl (9-20); Calcium 8.8 mg/dl (8.4-10.2); Carbon Dioxide 25 mmol/L (22-30); Chloride 107 mmol/L (98-107); Estimated Creatinine Clearance 88 ml/min; Glucose 153 mg/dl (70-99); Potassium 4.7 mmol/L (3.5-5.1); Sodium 137 mmol/L (135-145); eGFR > 60.00
[2025-04-30] MEDS: NOVOLOG FLEXPEN-LOW RESISTANCE 1 UNITS SC ×2 (10:16→14:34)
--- NOTE | 2025-04-30 11:08 | W.DCSUMMARY ---
Discharge Summary
Discharge Data
Date of Admission: 04/18/25
Date of Discharge: 04/30/25
Total time spent discharging patient (in min): 35
-
Pending Results: No
Hospital Course
Patient is 75 years old male history of diabetes mellitus hypertension dyslipidemia depression came into the hospital and diagnosed with MSSA bacteriuria and left hallux cellulitis and osteomyelitis status post left hallux amputation on 04/21.
Course complicated with persistent back pain and noncontrast MRI did not show any evidence of infection but followed by contrast MRI shows a 15 cm right psoas abscess and 7.5 cm paraspinal muscle abscess. He was treated with broad-spectrum IV
antibiotics and subsequently tailored to cefazolin based on cultures by ID. Neurosurgery evaluated the patient and felt no surgical intervention required. He did have drainage placed by IR and he had aspiration of right paraspinal fluid and drain
placement of right psoas purulent fluid. At the time of discharge the drainage has been minimal and IR will pull out drain. Otherwise, patient hemodynamically stable, afebrile and symptomatically much improved. He will be discharged in stable
condition today.
Discharge duration: 35 minutes
Discharge Plan
-
Patient Disposition: [facility]NF
Discharge Diagnosis/Procedures: Sepsis
Right psoas muscle abscess
L3-L4 discitis and anterior epidural abscess
Acute left distal phalanx cellulitis and osteomyelitis.
Methicillin sensitive Staphylococcus aureus bacteremia
History of diabetes mellitus
Diet: Diabetic, Carb Controlled
Activity: With assistance and As tolerated
Blood Work: Please PCP to order CBC, BMP within 1 week
Referrals:
Simona Mancini MD, Resident [Family Practice Resident Year3, General] - in less than 1 week
Donavan Fine MD [Family Provider, Internal Medicine] - in less than 1 week
John Ulloa MD [Active, Orthopedics] - in four to six weeks
Juan Riggs PSY [Specified Professional Personl, Psychology] - in four to six weeks
Jodee Tam MD [Active, Infectious Diseases] - in six weeks
Prescriptions:
New
oxycodone-acetaminophen 5-325 mg Tablet
1 tab PO Q4HPRN PRN (Reason: moderate pain) Qty: 7 0RF
cefazolin 10 gram Recon Soln
2 g IV Q8H Qty: 138 0RF
Continued
lisinopril-hydrochlorothiazide 20-12.5 mg Tablet
1 tab PO BID
therapeutic multivitamin Tablet
1 tab PO DAILY
aspirin 81 mg Tablet,Delayed Release (Dr/Ec)
81 mg PO DAILY
simvastatin [Zocor] 40 mg Tablet
40 mg PO DAILY
metformin 500 mg Tablet Extended Release 24 Hr
2,000 mg PO QPM
escitalopram oxalate [Lexapro] 10 mg Tablet
10 mg PO DAILY
omega 2-mhc-pwg-fish oil [Fish Oil] 60-90-500 mg Capsule
1 cap PO DAILY
Discontinued
methylprednisolone [Medrol ([place]er[place])] 4 mg Tablets,Dose Pack
0 mg PO PER PKG DIR
naproxen sodium [Aleve] 220 mg Tablet
440 mg PO BID
Discharge Orders:
Discharge Patient (As Directed); Ordered 04/30/25
Ordered By: Cristian To
Discharge Date and Time
Print Language: INDONESIAN
[2025-04-30 11:55] LABS: Glucose - Point of Care 165 mg/dl (70-99)
--- NOTE | 2025-04-30 12:00 | W.PN.ID1 ---
Date of Service
Date of Service: April 30, 2025
Today's Communication
Continue antibiotics.
Assessment / Plan
# Right psoas muscle abscess
# L3-L4 discitis and anterior epidural abscess
# Left hallux cellulitis/osteo
. 04/21 s/p toe amp.
. cx MSSA
. Path pending
# MSSA bacteruria
. asymptomatic
# Leukocytosis resolved
# Hx DM with neuropathy
- Suspect toe osteo as source of lumbar abscesses via transient bacteremia.
- Blood cx's x2 negative
- 04/20 MRI L spine wo contrast report: 'no discitis/osteo/abscess'. + right psoas muscle and paraspinal muscle strain vs partial tear
- 04/25 MRI L spine wo and with contrast report: septic arthritis L3/L4 with anterior epidural abscess (1.9cm), 15 cm R psoas abscess, 7.5 cm R paraspinal muscle abscess
- TTE no vege
- Neurosurgery evaluation - no emergent need for surgical intervention.
-04/27 IR aspiration of R paraspinal fluid cloudy hemorrhagic fluid; IR drain placement of R psoas fluid purulent appearing hemorrhagic fluid
Cx's Staph aureus
- Continue cefazolin 2g IV q8h through 06/14/25
- Follow CBC, CMP,CRP/ESR weekly.
- Picc in place
- Infusion sheet submitted to shoe caser for SNF rehab.
# Additional Past Medical History:
Diabetes mellitus
Neuropathy
Hypertension
Dyslipidemia
Depression
Chief Complaint
-: Other (back pain)
Subjective / Review of Systems
Patient seen and examined. Denies difficulty with antibiotics.
Review of Systems: No Fever and No Chills
Vital Signs / Physical Exam
Vital Signs
Vital Signs
Temp Pulse Resp BP Pulse Ox
97.4 F 59 17 124/61 96
04/30/25 07:15 04/30/25 07:15 04/30/25 07:15 04/30/25 07:15 04/30/25 07:15
Physical Exam
Constitutional: No Acute Distress, Comfortable and Non-toxic
Cardiovascular: Regular Rate and S1/S2
Pulmonary: Clear
Gastrointestinal: Soft, Non Tender and Non Distended
Extremities: Negative Edema
Musculoskeletal: Other (right KENNEDY drain with serosanguinous fluid)
Neurological: Awake and Alert
Lines: PICC (RUE no erythema)
Objective Data
Lab Data
Lab Results
04/30/25 08:23
04/30/25 08:23
ESR 84 mm/hour (0-20) H 04/25/25 14:46
Estimated Creat Clear 88 ml/min 04/30/25 08:23
Lactic Acid 2.6 mmol/L (0.7-2.0) H 04/18/25 19:54
Total Bilirubin 0.5 mg/dl (0.2-1.3) 04/19/25 05:15
AST 12 U/L (17-59) L 04/19/25 05:15
ALT 13 U/L (0-50) 04/19/25 05:15
Alkaline Phosphatase 73 U/L (38-126) 04/19/25 05:15
C-Reactive Protein 62.40 mg/L (0.0-10.00) H 04/25/25 14:45
Most recent labs reviewed.
Micro Results:
04/27/25 17:55 Wound Culture - Final
Abscess S aureus-Methicillin Sensitive
Gram Stain - Final
04/27/25 09:00 Wound Culture - Final
Muscle S aureus-Methicillin Sensitive
Gram Stain - Final
04/21/25 Unknown Wound Culture - Final
Foot - Left S aureus-Methicillin Sensitive
Gram Stain - Final
04/21/25 Unknown Anaerobic Culture - Final
Foot - Left NO ANAEROBES ISOLATED
04/18/25 21:59 Blood Culture - Final
Blood/Venous No Growth - Final Report
04/18/25 21:59 Blood Culture - Final
Blood/Venous No Growth - Final Report
04/18/25 20:00 Urine Culture - Final
Urine S aureus-Methicillin Sensitive
04/25/25 Lumbar MRI wo and w contrast:
1. SEVERE SEPTIC ARTHRITIS of the RIGHT L3/L4 FACET JOINT.
2. Anterior EPIDURAL ABSCESSES posterior to the L3 and L4 vertebral bodies.
3. 15.0 cm in length tubular ABSCESS in the right psoas muscle.
4. 7.5 cm in length tubular ABSCESS in the right posterior paraspinal muscles.
5. Severe myositis in the right psoas and right posterior paraspinal muscle surrounding the abscesses.
6. SEVERE CENTRAL CANAL STENOSIS and severe right neural foraminal narrowing at L3/L4.
7. Moderate central canal stenosis at L2/L3 and L4/L5.
8. Severe left-sided facet joint arthrosis at L4/L5.
04/20/25 LLE MRI wo contrast: First distal digit cellulitis with osteomyelitis. Probable superimposed pathologic fracture. Interphalangeal joint effusion, suspicious for septic arthritis, as well as fluid distention along the first extensor tendon
sheath, raising the possibility of infectious tenosynovitis. Low level bone marrow edema is noted within the head of the first proximal phalanx, which may be reactive in nature. Mild/early osteomyelitis cannot be entirely excluded.
04/20/25 Lumbar MRI: No evidence to suggest discitis or osteomyelitis. No epidural collection to suggest epidural abscess. Intramuscular and fascial edema associated with the right psoas muscle and posterior right paraspinal musculature. Most likely
muscle strain/partial tear. See full dictated report.
04/19/25 Foot XRAY: Lucency suggesting cortical bony destructive process involving at least the distal aspect of the distal phalanx of the left great toe,a suspicious for infection/osteomyelitis.
[2025-04-30] MEDS: MILK OF MAGNESIA 30 ML PO (12:32)
--- NOTE | 2025-04-30 12:32 | CM ---
MD indicated patient ready for discharge.
Spoke with NIRMAL at [facility] . Pt is accept today He will need Covid test MD and RN notified.
[facility] can accept after 4 p today. RN aware.
Spoke with Cortes son he can transport patient today via his care.
IMM reviewed and pt and [facility]. All Questions answered. IMM signed on chart.
MD notified pt has not had BM recently.
[facility]
report [phone]
fax [phone]
Plan To [facility] after Covid test
[2025-04-30] MEDS: DULCOLAX 10 MG RECTAL (12:33)
--- NOTE | 2025-04-30 13:20 | PN.IRAD.UPD ---
Update Note - IRAD
- -
\\\\RIGHT PSOAS ABSCESS DRAIN REMOVED AT BEDSIDE. NEW, CLEAN,DRY DRESSING PLACED OVER SITE. PATIENT TOLERATED PROCEDURE WELL.
[2025-04-30 13:37] LABS: COVID-19 Antigen Negative (Negative)
[2025-04-30 14:36] VITALS: BP 106/58
[2025-04-30] MEDS: TYLENOL 650 MG PO (14:36)
== END 2025-04-30 16:08 | DRG 853 ==
LOC: 3 WEST ACU 22:14
PROVIDERS: General Practice; Internal Medicine; Physician Assistant; Radiology Diagnostic Radiology; Radiology Vascular & Interventional Radiology; Student in an Organized Health Care Education/Training Program; ADMITTING PHYSICIAN Internal Medicine; ATTENDING PHYSICIAN Hospitalist; CONSULT PHYSICIAN Internal Medicine Infectious Disease; CONSULT PHYSICIAN Neurological Surgery; EMERGENCY PHYSICIAN Emergency Medicine; FAMILY PHYSICIAN Internal Medicine; OTHER PHYSICIAN Student in an Organized Health Care Education/Training Program
PROC: 0Y6Q0Z0 Detachment at Left 1st Toe, Complete, Open Approach (ICD-10-PCS; 2025-04-23)
PROC: 0K9N30Z Drainage of Right Hip Muscle with Drainage Device, Percutaneous Approach (ICD-10-PCS; 2025-04-27)
PROC: 009U3ZZ Drainage of Spinal Canal, Percutaneous Approach (ICD-10-PCS; 2025-04-27)
PROC: 02HV33Z Insertion of Infusion Device into Superior Vena Cava, Percutaneous Approach (ICD-10-PCS; 2025-04-28)
DX: A41.01 Sepsis due to Methicillin susceptible Staphylococcus aureus (principal); G06.2 Extradural and subdural abscess, unspecified; K68.12 Psoas muscle abscess; G92.8 Other toxic encephalopathy; M86.172 Other acute osteomyelitis, left ankle and foot; M87.9 Osteonecrosis, unspecified; M00.08 Staphylococcal arthritis, vertebrae; M84.675A Pathological fracture in other disease, left foot, initial encounter for fracture; N17.9 Acute kidney failure, unspecified; M25.551 Pain in right hip; E11.40 Type 2 diabetes mellitus with diabetic neuropathy, unspecified; E11.69 Type 2 diabetes mellitus with other specified complication; L03.032 Cellulitis of left toe; M48.061 Spinal stenosis, lumbar region without neurogenic claudication; R15.9 Full incontinence of feces; E86.0 Dehydration; B95.61 Methicillin susceptible Staphylococcus aureus infection as the cause of diseases classified elsewhere; E78.00 Pure hypercholesterolemia, unspecified; M46.46 Discitis, unspecified, lumbar region; I10 Essential (primary) hypertension; F32.A Depression, unspecified; R82.71 Bacteriuria; R19.7 Diarrhea, unspecified; R26.2 Difficulty in walking, not elsewhere classified; K76.89 Other specified diseases of liver; K76.0 Fatty (change of) liver, not elsewhere classified; Z79.82 Long term (current) use of aspirin; Z79.84 Long term (current) use of oral hypoglycemic drugs; Z11.52 Encounter for screening for COVID-19
CPT/HCPCS: 10160; 49406; 70450; 71045; 72148; 72158; 73502; 73630; 73718; 74177; 77012; 80048; 80053; 81003; 81015; 82550; 82962; 83036; 83605; 83690; 84484; 84550; 85025; 85027; 85652; 86140; 87040; 87070; 87075; 87086; 87147; 87186; 87205; 87811; 88305; 88311; 93005; 93306; 96361; 96374; 96375; 96376; 97116; 97162; 97164; 97167; 97530; 97535; 99152; 99153; 99285; A9575; Q9967

== ENCOUNTER → 2025-06-23 08:10 | Outpatient (REF) | payer MEDICARE, OTHER, SELFPAY ==
[2025-06-23 10:20] LABS: Hematocrit 37.1 % (39.0-52.0); Hemoglobin 11.8 g/dL (13.0-18.0); Mean Corp Hgb Conc. 31.8 g/dL (33.0-37.0); Mean Corpuscular Volume 93.2 fL (80.0-94.0); Nucleated Red Blood Cells % 0 % (-); Platelet Count 325 10^3/uL (130-400); Red Cell Dist. Width 15.3 % (11.5-14.5)
[2025-06-23 10:32] LABS: ALT (SGPT) 15 U/L (0-50); AST (SGOT) 19 U/L (17-59); Albumin 4.2 g/dl (3.5-5.0); Alkaline Phosphatase 64 U/L (38-126); Blood Urea Nitrogen 13 mg/dl (9-20); Calcium 9.4 mg/dl (8.4-10.2); Carbon Dioxide 27 mmol/L (22-30); Chloride 105 mmol/L (98-107); Glucose 123 mg/dl (70-99); HDL Cholesterol 31 mg/dl; LDL Cholesterol, Calculated 67 mg/dl; Potassium 4.4 mmol/L (3.5-5.1); Sodium 140 mmol/L (135-145); Total Protein 6.9 g/dl (6.3-8.2); Very Low Density Lipoprotein 15 mg/dl (0-30); eGFR > 60.00
[2025-06-23 10:34] LABS: C-Reactive Protein 16.20 mg/L (0.0-10.00)
[2025-06-23 10:45] LABS: Microalb - Urine Creatinine 67.700 mg/dl
[2025-06-23 10:50] LABS: Microalbumin, Random Urine 0.8 mg/dl (0.6-1.7)
[2025-06-23 11:04] LABS: TSH 1.26 uIU/ml (0.47-4.68)
[2025-06-24 10:31] LABS: Glycohemoglobin (HgbA1c) 6.6 % (4.0-5.9)
== END ==
LOC: HWLAB 08:10
PROVIDERS: ATTENDING PHYSICIAN Student in an Organized Health Care Education/Training Program
DX: E11.69 Type 2 diabetes mellitus with other specified complication (principal); E78.49 Other hyperlipidemia; I10 Essential (primary) hypertension; B95.61 Methicillin susceptible Staphylococcus aureus infection as the cause of diseases classified elsewhere
CPT/HCPCS: 36415; 80053; 80061; 82043; 82570; 83036; 84443; 85025; 85652; 86140

== ENCOUNTER → 2025-06-28 12:34 | Outpatient (REF) | payer MEDICARE, OTHER, SELFPAY | LOC: HWRAD 12:34 | PROVIDERS: REFERRING PHYSICIAN Orthopaedic Surgery | DX: M71.21 Synovial cyst of popliteal space [Baker], right knee (principal); M17.11 Unilateral primary osteoarthritis, right knee | CPT/HCPCS: 73564 ==

== ENCOUNTER → 2025-07-08 12:46 | Outpatient (REF) | payer MEDICARE, OTHER, SELFPAY | LOC: HWRAD 12:46 | DX: M71.21 Synovial cyst of popliteal space [Baker], right knee (principal); M17.11 Unilateral primary osteoarthritis, right knee | CPT/HCPCS: 76882 ==